=== PATIENT | male | born 1940 | race Caucasian/White ===

== ENCOUNTER 2016-06-20 06:11 | Inpatient (IN) | payer MEDICARE, OTHER, BC ==
[2016-05-25 11:51] VITALS: BMI 33.0
--- NOTE | 2016-05-25 12:24 | PAT Medication Instructions ---
Service Date May 25, 2016. Current Home Medication List Aspirin (Aspirin Chewable), 81 MG PO QAM Atorvastatin (Lipitor), 80 MG PO HS Carvedilol (Coreg Cr), 40 MG PO QAM Clopidogrel Bisulfate (Plavix), 75 MG PO DAILY Hydrochlorothiazide (Hctz), 25 MG PO QAM Isosorbide Mononitrate Ext Rel (Imdur Ext Rel), 30 MG PO QAM Oxycodone/Acetaminophen 5MG/325MG (Percocet 5MG/325MG), 1 TABLET PO Q4H PRN for Pain Tamsulosin Hcl (Flomax), 0.4 MG PO HS Valsartan (Diovan), 320 MG PO QAM Medication Instructions For Your Scheduled Surgery - Instructions to be given by prescribing physician (): Clopidogrel Bisulfate (Plavix), 75 MG PO DAILY - Hold the following medications the morning of surgery: Hydrochlorothiazide (Hctz), 25 MG PO QAM Valsartan (Diovan), 320 MG PO QAM - Take the following medications the morning of surgery with a sip of water OTHERWISE NOTHING TO EAT OR DRINK AFTER MIDNIGHT: Carvedilol (Coreg Cr), 40 MG PO QAM Aspirin (Aspirin Chewable), 81 MG PO QAM Isosorbide Mononitrate Ext Rel (Imdur Ext Rel), 30 MG PO QAM Oxycodone/Acetaminophen 5MG/325MG (Percocet 5MG/325MG), 1 TABLET PO Q4H PRN for Pain (may take if needed up to 4 hours prior to surgery) - Take the following medications as scheduled the night before surgery: Atorvastatin (Lipitor), 80 MG PO HS Tamsulosin Hcl (Flomax), 0.4 MG PO HS Oxycodone/Acetaminophen 5MG/325MG (Percocet 5MG/325MG), 1 TABLET PO Q4H PRN for Pain If you have any questions please call us at [phone] (Eli Cleveland PA-C ) or [phone] or [phone]
[2016-05-25 12:47] LABS: BASO ABS # 0.07 K/uL (0-0.2); COMPLETE YES; EOS % 3.1 %; HEMATOCRIT 40.4 % (42-52); IG% 0.3 %; LYMPH % 25.6 %; LYMPH ABS # 1.82 K/uL (1.2-3.4); MEAN CELL VOLUME 79.2 fL (80-100); MEAN CORPUSCULAR HEMOGLOBIN 27.1 pg (25-34); MEAN CORPUSCULAR HGB CONC 34.2 g/dl (32-36); MEAN PLATELET VOLUME 10.3 fL (7.4-10.4); MONO % 11.3 %; NEUT % 58.7 %; PLATELET COUNT 228 K/uL (130-400); WHITE BLOOD COUNT 7.11 K/uL (4.8-10.8)
[2016-05-25 13:10] LABS: PROTHROMBIN TIME (PATIENT) 11.2 SECONDS (9.0-12.0)
[2016-05-25 13:23] LABS: BUN/CREATININE RATIO 15.9 (10-20); CALCIUM 8.8 mg/dl (8.5-10.1); CREATININE 1.2 mg/dl (0.60-1.40); POTASSIUM 3.4 mmol/L (3.5-5.1)
[2016-05-25 13:58] LABS: URINE APPEARANCE CLOUDY (CLEAR); URINE BILIRUBIN NEG (NEG); URINE COLOR YELLOW; URINE EPITHELIAL CELL AUTO >30 /lpf (0-5); URINE NITRITE POS (NEG); URINE PH 6.5 (4.5-7.5); URINE SPECIFIC GRAVITY 1.015 (1.000-1.030); UROBILINOGEN NEG (NEG)
[2016-05-25 14:01] LABS: MANUAL MICROSCOPIC REQUIRED? NO; REVIEW REQ? NO
--- NOTE | 2016-06-18 08:54 | HISTORY & PHYSICAL EXAMINATION ---
DATE OF ADMISSION: 06/20/2016 CHIEF COMPLAINT: Right hip pain. HISTORY OF PRESENT ILLNESS: This 76-year-old white male presented to the office with complaints of right hip pain that has been ongoing for almost 2 years. Pain has become worse with time. He now has a constant pain that is worse with motion. He is having difficulty with ambulation and activities of daily living. No specific trauma. 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 He notes night pain. No numbness or tingling. He has tried oral anti-inflammatories ,as well as cortisone injections without lasting relief. He does have an antalgic gait. Pain is anterior. He elects to proceed with right total hip arthroplasty in hopes of alleviating his pain. PAST MEDICAL HISTORY: Significant for hypertension, BPH, osteoarthritis, heart disease, gout, prostatitis, and obesity. SURGICAL HISTORY: Cardiac catheterization in 2008 and 2015, colonoscopy, knee arthroscopy. FAMILY HISTORY: Significant for heart disease and sudden cardiac in multiple siblings and his father. ALLERGIES: NKDA. CURRENT MEDICATIONS: Percocet 5/325 mg p.r.n., Coreg 40 mg p.o. daily, clopidogrel 75 mg p.o. daily, HCTZ 25 mg p.o. daily, isosorbide mononitrate 30 mg p.o. daily, pantoprazole 40 mg p.o. daily, tamsulosin 0.4 mg p.o. daily, valsartan 320 mg p.o. daily. SOCIAL HISTORY: No tobacco use, no ETOH use. Retired. Single. REVIEW OF SYSTEMS: Significant for above stated conditions, otherwise unremarkable. PHYSICAL EXAMINATION: GENERAL: Well-developed, well-nourished elderly white male in no acute distress. Sitting on a bed. Alert and oriented. SKIN: Warm and dry with good turgor. No rashes or lesions. No ecchymosis or erythema. HEENT: Normocephalic, atraumatic. Left facial droop present. EYES: PERRLA. EOMI. EARS: TMs intact bilaterally with good light reflexes. No erythema or bulging. Nares patent bilaterally without turbinate enlargement. Oropharynx without erythema or exudate. No lesions noted. Uvula midline. Oral mucosa moist. HEART: RRR. No MGR. LUNGS: Clear to auscultation bilaterally. No crackles, rhonchi or wheezing. Good air movement. ABDOMEN: Bowel sounds present x4, soft, nontender. No organomegaly. No masses. MUSCULOSKELETAL: Right hip has no obvious asymmetry or deformity. He has an external rotation contracture. He also appears to have a flexion contracture. Flexion to around 90 degrees. He lacks extension even to neutral. No internal rotation. External rotation of around 25 degrees before onset of pain. There is discomfort with palpation over the anterior flexion crease. Ambulatory with an antalgic gait. Strength is 5/5 with fair quad tone. Intact motor function to the knee and ankle. NEUROLOGIC: Gross sensation is intact across both lower extremities by soft touch. Cranial nerves II-XII are intact. Left facial droop is noted. Decreased sensation over the left side of the face. DATA: Radiographic images previously obtained show severe end-stage DJD of the right hip. He is bone on bone. There is osteophyte formation, as well as subchondral sclerosis. IMPRESSION: Right hip end-stage degenerative joint disease. PLAN: Informed written consent was obtained to proceed with right total hip arthroplasty. Postoperative prescriptions for Percocet and Coumadin will be provided at discharge from the hospital. He has already seen his PCP and has been cleared for surgery in that regard. Cardiology has also evaluated him and he did have a new stress echo. He has been cleared from their perspective as well.
[2016-06-20] VITALS (9 sets, daily range): BP systolic 97–147; BP diastolic 58–80; PULSE 55–75; TEMP 36.3–36.8; O2SAT 93–98; Ht 177.8 cm; Wt 104.0 kg
[~2016-06-20] VITALS: Ht 177.8 cm; Wt 104.0 kg
[~2016-06-20 06:11] MED LIST: ASPCH81X PO; ATOR-26 PO; CEFAZOLIN 2000 MG/60 ML D5W 60 ML IV SCH; CLOP1TAB5 PO; CRGSR/40 PO; HYDR25TA4 PO; ISOS30TA3 PO; LACTATED RINGER'S 1000ML 1,000 ML IV SCH; LACTATED RINGER'S 1000ML 500 ML IV ONE; OXYC-57 PO; POTA10CA28 PO; ROPIVACAINE 5MG/ML 30 ML 150 MG, BUPIVACAINE/EPINEPHR 0.5% MPF 30 ML, DEXAMETHASONE INJ... INFIL SCH; TAMS0.4C38 PO; TRANEXAMIC ACID INJ 1,000 MG in SODIUM CHLORIDE 0.9% 100ML 100 ML TOP SCH; VALS320T PO
--- NOTE | 2016-06-20 06:25 | History & Physical Bridge Note ---
H&P Re-Evaluation Bridge Note: I have examined the patient, reviewed the History & Physical and in the interval since the performance of the History & Physical I have noted the following changes of clinical significance: No changes noted
[2016-06-20] MEDS ORDERED: BUPIVACAINE 0.5 % 5 MG/1 ML PF 10ML VIAL ONE (06:31)
[2016-06-20] MEDS ORDERED: ORTHO JOINT ANESTHETIC ONE (06:51)
[2016-06-20] MEDS ORDERED: FENTANYL CITRATE INJ 50 MCG/1 ML 2 ML VIAL ONE (07:26)
[2016-06-20] MEDS ORDERED: PROPOFOL IV EMULSION 10 MG/ML 20 ML VIAL IV ONE ×2 (07:26→09:53)
[2016-06-20] MEDS ORDERED: MIDAZOLAM HCL 1 MG/ML 2ML VIAL ONE (07:26)
[2016-06-20] MEDS ORDERED: PHENYLEPHRINE 100MCG/ML 5ML SYR IV PRN (08:15)
[2016-06-20] MEDS ORDERED: ONDANSETRON INJ 2 MG/ML 2 ML VIAL IV PRN ×2 (08:15→10:45)
[2016-06-20] MEDS ORDERED: EpHEDrine SULFATE INJ 50 MG/ML AMP IV PRN (08:15)
[2016-06-20] MEDS ORDERED: ATROPINE SULFATE 0.1 MG/ML 5ML SYR IV PRN (08:15)
[2016-06-20] MEDS ORDERED: VASOPRESSIN 20 UNIT/ML VIAL ONE (09:52)
[2016-06-20] MEDS ORDERED: EpHEDrine SULFATE 50MG/5ML SYR ONE (09:52)
[2016-06-20] MEDS ORDERED: PHENYLEPHRINE HCL INJ 10 MG/ML VIAL ONE (09:52)
[2016-06-20] MEDS ORDERED: LIDOCAINE HCL 2% 2 ML VIAL (20MG/ML) ONE (09:53)
[2016-06-20] MEDS ORDERED: ROCURONIUM BROMIDE 10 MG/ML 5 ML VIAL ONE (09:53)
[2016-06-20] MEDS ORDERED: POVIDONE-IODINE OP SOLN 30 ML BTL TOP ONE (10:15)
[2016-06-20] MEDS ORDERED: HYDROmorphone INJ 2 MG/ML SYR/VIAL ONE (10:25)
--- NOTE | 2016-06-20 10:31 | [facility] Post Operative Brief Note ---
Immediate Operative Summary Operative Date Jun 20, 2016. Pre-Operative Diagnosis Right Hip End Stage Degenerative Joint Disease Post-Operative Diagnosis Right Hip End Stage Degenerative Joint Disease Procedure(s) Performed Right Total Hip Arthroplasty--Uncemented Surgeon Dr. Kraft Safety Associate Surgeon(s) Dr. Saleem/MICHEAL Askew Estimated Blood Loss 200cc Findings severe djd Fluids (cc crystalloids) 2000cc Specimens A. Right Femoral Head Drains none Anesthesia GET Complication(s) None Disposition Recovery Room / PACU
[2016-06-20] MEDS ORDERED: MAGNESIUM HYDROXIDE SUSP 30 ML UDC PO PRN (10:45)
[2016-06-20] MEDS ORDERED: ALUMINUM/MAGNESIUM/SIMETH (MAALOX MAX) 30 ML UDC PO PRN (10:45)
[2016-06-20] MEDS ORDERED: TAMSULOSIN HCL 0.4 MG CAP PO PRN (10:45)
[2016-06-20] MEDS ORDERED: NO NSAIDS SCH (10:45)
[2016-06-20] MEDS ORDERED: BISACODYL 10 MG SUPP PR PRN (10:45)
[2016-06-20] MEDS ORDERED: MoRPHine SULFATE 2 MG/ML CARP IV PRN (10:45)
[2016-06-20] MEDS ORDERED: METOCLOPRAMIDE HCL INJ 5 MG/ML 2 ML VIAL IV PRN (10:45)
[2016-06-20] MEDS ORDERED: OXYCODONE HCL IR 5 MG TAB (IMMEDIATE RELEASE) PO PRN (10:45)
[2016-06-20] MEDS ORDERED: DiphenhydrAMINE HCL 50 MG/ML VIAL IV PRN (10:45)
--- NOTE | 2016-06-20 11:02 | [facility] Post Operative Brief Note ---
Immediate Operative Summary Operative Date Jun 20, 2016. Pre-Operative Diagnosis Right Hip End Stage Degenerative Joint Disease Post-Operative Diagnosis Right Hip End Stage Degenerative Joint Disease Procedure(s) Performed Right Total Hip Arthroplasty--Uncemented Surgeon Dr. Kraft Plow And Boring Machine Tender Surgeon(s) Dr. Saleem/MICHEAL Askew Estimated Blood Loss 200cc Findings Severe DJD of Rt hip Fluids (cc crystalloids) 2000cc Specimens A. Right Femoral Head Complication(s) None Disposition Recovery Room / PACU
[2016-06-20] MEDS: HYDROmorphone INJ 2 MG/ML SYR/VIAL IV PRN ×3 (11:10→11:27)
--- NOTE | 2016-06-20 11:12 | DIAGNOSTIC IMAGING REPORT ---
INTRAOPERATIVE RIGHT HIP SINGLE VIEW CLINICAL HISTORY: Right hip arthroplasty COMPARISON STUDY: 03/13/2016 FINDINGS: 6 seconds of fluoroscopic time was utilized. A single fluoroscopic spot image of the right hip is provided for interpretation. This reveals postsurgical changes of a total right hip arthroplasty. IMPRESSION: Intraoperative radiograph demonstrating a total right hip arthroplasty. Electronically signed by: Maximus Lopes M.D. 06/20/2016 11:10 AM Dictated Date/Time: 06/20/2016 11:09 AM
--- NOTE | 2016-06-20 11:28 | DIAGNOSTIC IMAGING REPORT ---
SINGLE VIEW PELVIS CLINICAL HISTORY: Postoperative examination. FINDINGS: AP portable view of the hips and lower pelvis is compared to study dated 03/13/2016. The skeletal structures are osteopenic. A bipolar right hip arthroplasty is in near-anatomic alignment. A single cortical lag screw transfixes the acetabular cup. No acute fracture is identified. Mild arthritic change is present in the left hip. There are expected postoperative changes overlying the right hip including skin clips, subcutaneous gas, and soft tissues swelling. IMPRESSION: Expected postoperative findings status post right hip arthroplasty. No acute fracture is seen. Electronically signed by: Glne Silva M.D. 06/20/2016 11:26 AM Dictated Date/Time: 06/20/2016 11:24 AM
--- NOTE | 2016-06-20 11:38 | OPERATIVE REPORT ---
DATE OF OPERATION: 06/20/2016 PREOPERATIVE DIAGNOSIS: Severe osteoarthritis with flexion deformity and external rotation deformity, right hip. POSTOPERATIVE DIAGNOSIS: Same. OPERATION PERFORMED: Noncemented right total hip replacement. SURGEON: Dr. Kraft. SWIMMING POOL MAINTENANCE: Dr. Galvin. SECOND SWIMMING POOL MAINTENANCE: Víctor Neville PA-C. PERIOPERATIVE SITUATION: Medically cleared male with intractable hip pain has failed conservative management, is high risk, has been gone through all this consultations and calculated his risks and wants to proceed with surgical treatment. Options were discussed in detail including all the potential complications. Please see the consent. OPERATION AND FINDINGS: OPERATION: The patient appropriately identified, site verified, consent verified, 2 grams of Ancef confirmed as being given. The right lower extremity was prepped and draped in usual routine fashion with the patient in the left lateral decubitus position. The lower extremity was prepped and draped in usual routine fashion. Posterior approach to the hip was made. Sharp dissection carried through the skin and blunt dissection down to the fascia. This was then opened. The short external rotators were identified and released. The capsule released and excised, he was very contracted. 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 The hip was then dislocated, the femoral neck resected. The acetabular exposure was then noted. There was a labral tear anteriorly that was stuck in the joint. This was all debrided. Serial reaming then carried up to a 58 and 58 cup impacted into position and then secured with an additional 6.5 x 25 screw with excellent purchase. Trial liner was then seated. Osteophytes about the inferior acetabulum were then excised. The femur was then delivered into the wound. Appropriate retraction placed with care taken to protect the sciatic nerve, box spring maker placed, canal finder placed, lateralizing rasp placed and serial broaching up to a 4 and a size 4 was placed. Reductions were then carried out and the high offset offered the best stability without increasing leg lengths. The trials were then removed. The wound irrigated copiously. The hole eliminator seated, permanent liner seated, permanent 4 high offset femur stem seated, it was seated at the exact position as before, so the 36 x 8.5 head was placed and the hip reduced. It was stable with the exception of flexion beyond 90 degrees and internal rotation beyond 30 degrees. At this point in time, the leg lengths were equal and was accepted. Wound was irrigated one final time with Betadine and then once this was done, Pulsavac and #2 Vicryl used to repair the piriformis as well as the IT band and the gluteus sera fascia. The wound was then irrigated one final time and then injected with the Orthomix. The wound was then closed with 2-0 Vicryl and stainless steel clips. Appropriate soft tissue dressing applied. While the patient was having his dressings removed someone stated the felt a click. We placed him supine. It appeared his hips were located; however, we just brought him forward just to verify that it was and everything was fine. Estimated blood loss 200 mL. Crystalloid 2000 mL. SUMMARY OF IMPLANTS: Size 58 acetabular shell sector cup with Gription, cancellous screw 6.5 x 25, acetabular liner 58 neutral x36, 4 high offset femur and 36 x 8.5 head. DVT prophylaxis at this point in time will be with Persantine b.i.d. and aspirin due to his heart disease. 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 I attest to the content of the Intraoperative Record and any orders documented therein. Any exceptio ns are noted below.
[2016-06-20] MEDS ORDERED: MoRPHine SULFATE 4 MG/ML 1 ML CARP\\VIAL IV PRN (12:15)
--- NOTE | 2016-06-20 12:34 | Anesthesiology Progress Note ---
Anesthesia Post Op Note Date & Time Jun 20, 2016 at 12:33 Vital Signs Pain Intensity: 3 Vital Signs Past 12 Hours Date Time Temp Pulse Resp B/P Pulse Ox O2 Delivery O2 Flow Rate FiO2 06/20/16 12:28 55 16 97 Nasal Cannula 5.0 06/20/16 12:00 62 13 93/61 94 Nasal Cannula 2 06/20/16 11:50 58 12 87/51 95 Nasal Cannula 2 06/20/16 11:40 36.4 70 18 93/57 94 Nasal Cannula 2 06/20/16 11:30 58 12 95/63 96 Nasal Cannula 2 06/20/16 11:20 60 12 102/60 99 Mask 10 06/20/16 11:10 67 18 114/73 100 Mask 10 06/20/16 11:01 36.2 66 18 125/71 99 Mask 10 06/20/16 06:55 36.4 75 20 116/65 93 Room Air Notes Mental Status: alert / awake / arousable, participated in evaluation Pt Amnestic to Procedure: Yes Nausea / Vomiting: adequately controlled Pain: adequately controlled Airway Patency, RR, SpO2: stable & adequate BP & HR: stable & adequate Hydration State: stable & adequate Anesthetic Complications: no major complications apparent
--- NOTE | 2016-06-20 14:15 | PROGRESS NOTE ---
DATE: 06/20/2016 Postop check. At this point in time, he is doing well. Denies chest pain, shortness of breath, fever or chills. Vital signs are stable. He is afebrile. Neurovascular check femoral sciatic nerve is good. Postop x-rays look excellent. ASSESSMENT: Doing well. Continue care pathway. DVT prophylaxis will be slightly different from protocol and then based on his chronic knee for platelet inhibition secondary to heart disease. Will place him on aspirin and Persantine.
[2016-06-20] MEDS: D5W AND 1/2NSS + 20MEQ KCL 1,000 ML IV SCH ×2 (14:41→23:52)
[2016-06-20] MEDS: FERROUS GLUCONATE 324 MG TAB PO SCH ×2 (14:41→17:45)
[2016-06-20] MEDS: ACETAMINOPHEN IV 1,000 MG in EMPTY BAG 0 ML IV SCH ×2 (14:42→21:52)
--- NOTE | 2016-06-20 15:46 | Medical Consult ---
Consultation Date of Consultation: Jun 20, 2016. Attending Physician: Param Kraft M.D. Reason for Consultation: Postoperative medical management History of Present Illness The patient is a 76-year-old male who underwent right total hip arthroplasty by Dr. Kraft earlier in the day. He is seen postoperatively and has no complaints. He is awake, alert and oriented 3, sitting upright in bed, has eaten part of his lunch, and is in no acute distress. Social History Smoking Status: Never Smoker Smokeless Tobacco Use: No Alcohol Use: none Drug Use: none Occupation Status: retired Allergies Coded Allergies: Amlodipine (Unverified Adverse Reaction, Unknown, fatigue per cardio note , 06/20/16) Naproxen (Unverified Adverse Reaction, Unknown, fatigue per cardio note , 06/20/16) Current Inpatient Medications Current Inpatient Medications Medications (Trade) Dose Ordered Sig/Janki Route Start Time Stop Time Status Last Admin Dose Admin Lactated Ringer's 1,000 ml @ 60 mls/hr [id number] IV 06/20/16 06:00 06/20/16 22:39 06/20/16 06:44 60 MLS/HR Cefazolin Sodium 60 ml @ 100 mls/hr PREOP IV 06/20/16 06:00 06/20/16 18:00 06/20/16 08:56 100 MLS/HR Tranexamic Acid 1000 mg/Sodium Chloride 110 ml @ 0 mls/hr TODAY@0600 TOP 06/20/16 06:00 06/20/16 23:59 06/20/16 08:46 1 MLS/HR Ropivacaine 150 mg/Bupivacaine HCl/Epinephrine Bitart 30 ml/ Dexamethasone Sodium Phosphate 4 mg/Ketamine HCl 10 mg/Clonidine 100 mcg/Sodium Chloride 30 ml/ Empty Bag 92.2 ml @ 0 mls/hr PREOP INFIL 06/20/16 06:00 06/20/16 16:00 06/20/16 10:02 92.2 MLS/HR Potassium Chloride/Dextrose/ Sod Cl (D5W And 1/2nss + 20meq KCl) 1,000 ml @ 100 mls/hr Q10H IV 06/20/16 14:00 06/21/16 10:36 06/20/16 14:41 100 MLS/HR Miscellaneous Medication (No Nsaids) 1 ea UD N/A 06/20/16 10:45 07/20/16 10:44 Oxycodone HCl (Roxicodone Immediate Rel Tab) 1 TABLET FOR PAIN RATING... Q4H PRN PO 06/20/16 10:45 07/04/16 10:44 Morphine Sulfate 2 mg 2 mg Q2HWA PRN IV 06/20/16 10:45 07/04/16 10:44 Acetaminophen/ Empty Bag (Ofirmev Iv/ Empty Iv Bag 100ml) 100 ml @ 400 mls/hr Q8H IV 06/20/16 14:00 06/21/16 06:14 06/20/16 14:42 400 MLS/HR Magnesium Hydroxide (Milk Of Magnesia Susp) 30 ml Q6H PRN PO 06/20/16 10:45 07/20/16 10:44 Bisacodyl (Dulcolax Supp) 10 mg DAILY PRN MT 06/20/16 10:45 07/20/16 10:44 Senna (Senokot Tab) 17.2 mg HS PO 06/20/16 21:00 07/20/16 20:59 Docusate Sodium (coLACE CAP) 100 mg BID PO 06/20/16 21:00 07/20/16 20:59 Diphenhydramine HCl (Benadryl Inj) 25 mg Q8H PRN IV 06/20/16 10:45 07/20/16 10:44 Al Hydrox/Mg Hydrox/Simethicone (Maalox Max Susp) 15 ml Q4H PRN PO 06/20/16 10:45 07/20/16 10:44 Multivitamins (Multivitamin Tab) 1 tab QAM PO 06/21/16 09:00 07/21/16 08:59 Ondansetron HCl (Zofran Inj) 4 mg Q6H PRN IV 06/20/16 10:45 07/20/16 10:44 Metoclopramide HCl (Reglan Inj) 10 mg Q6H PRN IV 06/20/16 10:45 07/20/16 10:44 Ferrous Gluconate (Ferrous Gluconate Tab) 324 mg TIDM PO 06/20/16 12:30 07/20/16 12:29 06/20/16 14:41 324 MG Pantoprazole Sodium (Protonix Tab) 40 mg QAM PO 06/21/16 09:00 07/21/16 08:59 Aspirin (Ecotrin Tab) 325 mg HS PO 06/20/16 21:00 07/20/16 20:59 Tamsulosin HCl 0.4 mg 0.4 mg QAM PRN PO 06/20/16 10:45 07/20/16 10:44 Cefazolin Sodium 2000 mg/Dextrose 60 ml @ 100 mls/hr Q8H IV 06/20/16 18:00 06/21/16 02:35 Dexamethasone Sodium Phosphate/ Syringe (Decadron Inj/ Syringe) 2.5 ml @ 1 mls/min TODAY@0730 IV 06/21/16 07:30 06/21/16 07:33 Atorvastatin Calcium (Lipitor Tab) 80 mg HS PO 06/20/16 21:00 07/20/16 20:59 Clopidogrel Bisulfate (plAVix TAB) 75 mg DAILY PO 06/21/16 09:00 07/21/16 08:59 Hydrochlorothiazide (Hydrochlorothiazide Tab) 25 mg QAM PO 06/21/16 09:00 07/21/16 08:59 Isosorbide Mononitrate (Imdur Ext Rel Tab) 30 mg QAM PO 06/21/16 09:00 07/21/16 08:59 Potassium Chloride (Klor-Con M10) 10 meq DAILY PO 06/21/16 09:00 07/21/16 08:59 Tamsulosin HCl (Flomax Cap) 0.4 mg HS PO 06/20/16 21:00 07/20/16 20:59 Valsartan (Diovan Tab) 320 mg QAM PO 06/21/16 09:00 07/21/16 08:59 Carvedilol (Coreg Cr) 40 mg QAM PO 06/21/16 09:00 07/21/16 08:59 Indomethacin (Indocin Cap) 50 mg TODAY@1745 PO 06/20/16 17:45 06/20/16 17:46 Morphine Sulfate (MoRPHine SULFATE INJ) 4 mg Q2HWA PRN IV 06/20/16 12:15 07/04/16 12:14 Review of Systems The patient denies chest pain, palpitations, shortness of breath, cough, lower extremity swelling, vision change, hearing change, sore throat, fevers, chills, sweats, weight change, fatigue, nausea, vomiting, abdominal pain, pelvic pain, blood in urine or stool, dysuria, urinary frequency or urgency, lightheadedness , dizziness, headache, memory loss, rash, abnormal bruising or bleeding, imbalance, night sweats, or allergy symptoms. The review of systems is otherwise negative other than for that already noted above, and at least 10 systems have been reviewed. Physical Exam Date Time Temp Pulse Resp B/P Pulse Ox O2 Delivery O2 Flow Rate FiO2 06/20/16 15:17 36.4 62 16 122/72 97 Nasal Cannula 3.0 06/20/16 14:12 67 16 116/68 98 Nasal Cannula 3.0 06/20/16 13:45 58 16 97/58 97 Nasal Cannula 3.0 06/20/16 13:00 56 12 107/61 97 Nasal Cannula 3 06/20/16 12:45 53 14 102/62 98 Nasal Cannula 3 06/20/16 12:30 60 12 95/63 99 Nasal Cannula 4 06/20/16 12:28 55 16 97 Nasal Cannula 5.0 06/20/16 12:20 62 23 101/62 99 Nasal Cannula 4 06/20/16 12:10 63 22 103/55 97 Nasal Cannula 4 06/20/16 12:00 62 13 93/61 94 Nasal Cannula 2 06/20/16 11:50 58 12 87/51 95 Nasal Cannula 2 06/20/16 11:40 36.4 70 18 93/57 94 Nasal Cannula 2 06/20/16 11:30 58 12 95/63 96 Nasal Cannula 2 06/20/16 11:20 60 12 102/60 99 Mask 10 06/20/16 11:10 67 18 114/73 100 Mask 10 06/20/16 11:01 36.2 66 18 125/71 99 Mask 10 06/20/16 06:55 36.4 75 20 116/65 93 Room Air The patient is awake, well-developed and adequately nourished, alert and oriented 3, normocephalic and atraumatic, lying in bed and in no acute distress. HEENT--PERRL, EOMI, mucous membranes moist, and oropharynx normal. Neck--supple, no JVD or bruits, thyroid normal, trachea midline, no adenopathy. Heart--normal S1 and S2, no extra beats, no murmurs, rubs or gallops. Lungs--clear bilaterally with good air movement, no respiratory distress, no accessory muscle use. Abdomen--normal bowel sounds and soft, nontender and nondistended, no hernias or masses, no organomegaly. Extremities--no cyanosis, clubbing or edema. There are good distal pulses b/l. Dermatologic--normal skin turgor, normal color, warm and dry, no abnormal lymph nodes, no rash. Neurologic--cranial nerves II through XII grossly intact. Psychiatric--normal affect. Assessment & Plan Status post right total hip arthroplasty, is medically stable. CAD/hypertension--no complaints of chest pain or shortness of breath. Continue carvedilol CR 40 mg by mouth every morning, aspirin and Persantine per primary service. Orders, HCTZ 25 mg by mouth every morning, Imdur extended release 30 mg by mouth every morning, potassium chloride extended release 10 mEq by mouth every morning, and valsartan 320 mg by mouth every morning,all with hold parameters. Would hold Plavix if he is going to be on aspirin and Persantine. BPH--continue tamsulosin 0.4 mg by mouth at bedtime. Hypercholesterolemia--continue atorvastatin 80 mg by mouth at bedtime.
[2016-06-20] MEDS ORDERED: INDOMETHACIN 25 MG CAP PO SCH (17:45)
[2016-06-20] MEDS: CEFAZOLIN IV 2,000 MG in DEXTROSE 5% 50ML 50 ML IV SCH (17:47)
[2016-06-20] MEDS ORDERED: ATORVASTATIN 40 MG TAB PO SCH (21:00)
[2016-06-20] MEDS ORDERED: ASPIRIN 325 MG ECTAB PO SCH (21:00)
[2016-06-20] MEDS ORDERED: TAMSULOSIN HCL 0.4 MG CAP PO SCH (21:00)
[2016-06-20] MEDS ORDERED: SENNA 8.6 MG TAB PO SCH (21:00)
[2016-06-20] MEDS: DOCUSATE SODIUM 100 MG CAP PO SCH (21:37)
[2016-06-21] MEDS: CEFAZOLIN IV 2,000 MG in DEXTROSE 5% 50ML 50 ML IV SCH (01:42)
[2016-06-21 03:51] VITALS: BP 152/78; PULSE 70; TEMP 36.3; O2SAT 93
[2016-06-21] MEDS ORDERED: COUGH DROP (SUGAR FREE) LOZ 24 LOZ/1 BOX ONE (05:38)
[2016-06-21] MEDS: ACETAMINOPHEN IV 1,000 MG in EMPTY BAG 0 ML IV SCH (05:44)
[2016-06-21 05:46] LABS: COMPLETE YES; HEMATOCRIT 32.8 % (42-52); IG% 0.2 %; LYMPH % 7.4 %; LYMPH ABS # 0.99 K/uL (1.2-3.4); MEAN CORPUSCULAR HEMOGLOBIN 26.9 pg (25-34); MEAN CORPUSCULAR HGB CONC 33.2 g/dl (32-36); MEAN PLATELET VOLUME 10.6 fL (7.4-10.4); MONO % 7.7 %; NEUT % 84.7 %; PLATELET COUNT 184 K/uL (130-400); RED BLOOD COUNT 4.05 M/uL (4.7-6.1)
[2016-06-21 05:57] LABS: INR 1.1 (0.9-1.1); PROTHROMBIN TIME (PATIENT) 11.4 SECONDS (9.0-12.0)
[2016-06-21 06:18] LABS: BUN/CREATININE RATIO 21.7 (10-20); CALCIUM 7.7 mg/dl (8.5-10.1); CREATININE 1.1 mg/dl (0.60-1.40); POTASSIUM 3.9 mmol/L (3.5-5.1)
--- NOTE | 2016-06-21 06:41 | PROGRESS NOTE ---
DATE: 06/21/2016 HISTORY OF PRESENT ILLNESS: Postop day #1, is doing well status post right hip replacement. Neurovascular check femoral sciatic nerve is good. Labs are stable. He has no chest pain, shortness of breath, fever or chills. Plan is to restart him on his Persantine and aspirin as DVT prophylaxis. He will follow up with me in the office in 2 weeks. He can be discharged today after PT, OT.
--- NOTE | 2016-06-21 06:50 | DISCHARGE SUMMARY ---
CHIEF COMPLAINT: Right hip pain. HISTORY OF PRESENT ILLNESS: A 76-year-old male admitted for elective right total hip replacement. He is doing well. He feels confident that he can go home today. He is set up with home. PAST MEDICAL HISTORY: Remarkable for hypertension, benign prostatic hypertrophy, osteoarthritis, heart disease, gout, prostatitis and weight management. PAST SURGICAL HISTORY: Remarkable for cardiac catheterization, colonoscopy, and knee arthroscopy. FAMILY HISTORY: Remarkable for heart disease and sudden cardiac in multiple siblings and his father. ALLERGIES: Listed as none, ALTHOUGH THERE IS SENSITIVITY TO NAPROSYN. CURRENT MEDICATIONS: Include Percocet, Coreg, clopidogrel, hydrochlorothiazide, isosorbide mononitrate, pantoprazole, tamsulosin and valsartan. He will continue all of that. I would add an aspirin 325 daily. SOCIAL HISTORY: Reveals he does not smoke or drink. He is retired. REVIEW OF SYSTEMS: Noncontributory. PHYSICAL EXAMINATION: Overall, doing well and can move well, can lift his leg, has good quad control, good hamstring controlled, good foot and ankle pumps. Femoral sciatic nerve is normal. Pulses intact. ASSESSMENT AND PLAN: Doing well status post hip replacement. We will discharge today after he passes physical therapy, occupational therapy. Due to special circumstances for his heart disease, we will leave on his Persantine daily and add a full aspirin and Ecotrin 325 daily. We will discontinue any notion of using NSAIDs for heterotopic ossification due to his sensitivities.
[2016-06-21 07:16] VITALS: BP 141/78; PULSE 70; TEMP 36.4; O2SAT 94
[2016-06-21] MEDS ORDERED: DEXAMETHASONE INJ 10 MG in SYRINGE 0 ML IV SCH (07:30)
--- NOTE | 2016-06-21 08:43 | Orthopedic Progress Note ---
Orthopedic Progress Note Date of Service Jun 21, 2016. 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 Objective calves soft nontender, N/V intact, hip located, capillary refill less than 2 sec., dressing C/D/I, incision C/D/I, A&O x3, toes mobile, CMS intact Date Time Temp Pulse Resp B/P Pulse Ox O2 Delivery O2 Flow Rate FiO2 06/21/16 07:16 36.4 70 16 141/78 94 Room Air 06/21/16 03:51 36.3 70 18 152/78 93 Room Air 06/20/16 23:15 36.8 72 18 144/80 96 Room Air 06/20/16 20:08 36.6 70 16 109/72 96 Nasal Cannula 06/20/16 19:35 97 Nasal Cannula 2.0 06/20/16 16:18 36.3 65 16 147/72 97 Nasal Cannula 3.0 06/20/16 15:17 36.4 62 16 122/72 97 Nasal Cannula 3.0 06/20/16 14:12 67 16 116/68 98 Nasal Cannula 3.0 06/20/16 13:45 58 16 97/58 97 Nasal Cannula 3.0 06/20/16 13:15 Nasal Cannula 3.0 06/20/16 13:15 Nasal Cannula 3.0 06/20/16 13:00 56 12 107/61 97 Nasal Cannula 3 06/20/16 12:45 53 14 102/62 98 Nasal Cannula 3 06/20/16 12:30 60 12 95/63 99 Nasal Cannula 4 06/20/16 12:28 55 16 97 Nasal Cannula 5.0 06/20/16 12:20 62 23 101/62 99 Nasal Cannula 4 06/20/16 12:10 63 22 103/55 97 Nasal Cannula 4 06/20/16 12:00 62 13 93/61 94 Nasal Cannula 2 06/20/16 11:50 58 12 87/51 95 Nasal Cannula 2 06/20/16 11:40 36.4 70 18 93/57 94 Nasal Cannula 2 06/20/16 11:30 58 12 95/63 96 Nasal Cannula 2 06/20/16 11:20 60 12 102/60 99 Mask 10 06/20/16 11:10 67 18 114/73 100 Mask 10 06/20/16 11:01 36.2 66 18 125/71 99 Mask 10 Laboratory Results 24 Hours: Test 06/21/16 05:24 White Blood Count 13.40 K/uL Red Blood Count 4.05 M/uL Hemoglobin 10.9 g/dL Hematocrit 32.8 % Mean Corpuscular Volume 81.0 fL Mean Corpuscular Hemoglobin 26.9 pg Mean Corpuscular Hemoglobin Concent 33.2 g/dl Platelet Count 184 K/uL Mean Platelet Volume 10.6 fL Neutrophils (%) (Auto) 84.7 % Lymphocytes (%) (Auto) 7.4 % Monocytes (%) (Auto) 7.7 % Eosinophils (%) (Auto) 0.0 % Basophils (%) (Auto) 0.0 % Neutrophils # (Auto) 11.35 K/uL Lymphocytes # (Auto) 0.99 K/uL Monocytes # (Auto) 1.03 K/uL Eosinophils # (Auto) 0.00 K/uL Basophils # (Auto) 0.00 K/uL Prothromb Time International Ratio 1.1 Prothrombin Time 11.4 SECONDS Assessment & Plan Assessment: Day 1 s/p Right Total Hip Arthroplasty Plan: Aspirin, Prisantine, FARRUKH stockings and SCD's for DVT prophylaxis. Cont total hip precautions Cont PT/OT with possible discharge this evening. Cont PO pain meds PRN Ice to hip with EZ wrap Home health for 2 weeks then outpatient therapy 2-3 days per week for 4 additional weeks. F/u with Dr. Kraft in the clinic in 2 wks as prev scheduled. Discharge Planning Discharge Planning: home with home health Pain Management: Percocet DVT Prophylaxis: TEDs, SCDs, ASA, other (Prisantine) Therapy: Physical Therapy, Occupational Therapy
[2016-06-21] MEDS ORDERED: VALSARTAN 80 MG TAB PO SCH (09:00)
[2016-06-21] MEDS ORDERED: POTASSIUM CHLORIDE 10 MEQ TABCR PO SCH (09:00)
[2016-06-21] MEDS ORDERED: HYDROCHLOROTHIAZIDE 25 MG TAB PO SCH (09:00)
[2016-06-21] MEDS ORDERED: MULTIVITAMIN TAB PO SCH (09:00)
[2016-06-21] MEDS ORDERED: PANTOprazole SOD 40 MG TAB PO SCH (09:00)
[2016-06-21] MEDS ORDERED: ASPIRIN 325 MG ECTAB PO SCH (09:00)
[2016-06-21] MEDS ORDERED: CLOPIDOGREL BISULFATE 75 MG TAB PO SCH (09:00)
[2016-06-21] MEDS ORDERED: ISOSORBIDE MONONITRATE 30 MG TABCR PO SCH (09:00)
[2016-06-21] MEDS ORDERED: CARVEDILOL CR 20 MG CAPER PO SCH (09:00)
[2016-06-21] MEDS ORDERED: ASPI325T45 PO (09:26)
[2016-06-21] MEDS ORDERED: OXYC-57 PO (09:26)
[2016-06-21] MEDS: DOCUSATE SODIUM 100 MG CAP PO SCH (09:31)
[2016-06-21] MEDS: FERROUS GLUCONATE 324 MG TAB PO SCH (09:31)
--- NOTE | 2016-06-21 09:33 | Discharge Instructions ---
Discharge Instructions Admission Reason for Admission: Right Hip Degenerative Joint Disease Discharge Discharge Diagnosis / Problem: s/p left total hip arthroplasty Discharge Goals Goal(s): Decrease discomfort, Improve function, Increase independence Activity Recommendations Activity Limitations: as noted below Lifting Limitations: none Exercise/Sports Limitations: none May Resume Sexual Activity: after follow-up appointment Shower/Bathe: keep incision dry Driving or Machine Use: once cleared by Dr. Kraft's office Weightbearing Status: Left weightbearing (as tolerated) . Instructions / Follow-Up Instructions / Follow-Up New Medicine: * You will likely be taking one or more of these medicines: 1. Percocet - Take, as directed, when you need it, every four to six hours to control your pain. 2. Iron Sulfate - Take three times each day for the month after surgery to help you replace the blood lost during surgery. 3. Plavix will be resumed as scheduled and you will begin taking Aspirin 325mg daily x 6 weeks after surgery- Thins your blood to lessen the chance of forming a blood clot. * The most common side effects of pain medicine and iron are nausea and constipation. If nausea or constipation is too much of a problem or if you have any questions about your new medicines or doses, call [facility] at . We will try to help you manage these issues. VERY IMPORTANT TO READ AND REVIEW" Blood Clots and Blood Thinning Medicine: * You are given Aspirin during the immediate post-operative period to lessen the risk of blood clots forming in your legs and/or lungs along with resuming your Plavix. Aspirin is to be used for six weeks after surgery. Pain: * The immediate post-operative period after hip replacement surgery is often quite painful. * You are given a prescription for pain medicine. You should take it, as directed, when you need it, especially before physical therapy and before going to bed. Pain that interferes with sleep is very common and can last several months. * You will likely need pain medicine for the first two to four weeks. It will not stop all of the pain. The pain will lessen and as you feel better, you may change to milder pain medicine such as Tylenol. * The most common side effects of pain medicine are nausea and constipation, so don't take more than you need. Physical Therapy: * Follow the "Hip Precautions Instructions." * In some cases, the social work assistant at the hospital will arrange to have a therapist come to your house for the first couple of weeks to help you learn these skills. * You need to practice on your own or with the help of a family member as needed. * When you learn these skills, most of the therapy can be done on your own. Home Exercise: * You were shown a series of exercises in the hospital. Do these exercises three to four times each day including the exercises you were shown in physical therapy. Walking: * Get up and walk several times each day. For the first four weeks, try not to stand or walk for more than one hour at a time. If you do stand or walk for more than one hour, you will not hurt anything, but your leg will likely swell. * As you feel comfortable, you may change from the walker or crutches to a cane and then to independent walking. SELF CARE INSTRUCTIONS AFTER TOTAL HIP REPLACEMENT Until the incision and soft tissues around your hip have healed, there is a possibility that the hip prosthesis could dislocate. A. Observe the following precautions to prevent dislocation: 1. Don't bend your hip greater than 90 degrees. 2. Avoid crossing your legs or ankles while standing or lying. 3. Sit with your feet placed 6 inches apart. 4. When sitting, keep your knees below your hips. Sit on a firm surface, avoid deep, soft chairs and couches. Use an elevated toilet seat in the bathroom. 5. Don't bend over at the waist. Use a long handled shoehorn and a sock aid to help you put on your shoes and socks. A quality control lab tech can help you pickle maker objects that are too high or too low to reach. 6. Keep car riding to a minimum for at least one month after surgery. B. Your balance may be shaky for a while. Use crutches or a walker until directed by your doctor. C. Use hand rails when walking on stairs. D. Wear low heeled shoes with non-slip soles. E. Be sure that your floors are free of things that could trip you - throw rugs , electrical cords, small objects. Avoid wet and waxed floors, especially with crutches and canes. F. Try to walk several times a day with rest periods between. G. Continue with all the exercises taught to you in the hospital. Again, make walking a part of your daily routine. VERY IMPORTANT TO READ AND REVIEW B. There are a few signs you need to watch for after you are home. If you notice any of the followin. Increased severe hip pain. Some pain is expected especially when you exercise. 2. Increased swelling in your leg or knee; pain or swelling of the calf muscle in either lower leg. 3. Any fluid drainage from the incision. 4. Shortness of breath or chest pain. TEDs/Elastic Stockings: * The white elastic stockings help limit swelling and prevent blood clots from forming in your legs. The more you wear them, the more they work. * Wear them for six weeks. Prevention of Infection: * Take antibiotics one hour before any dental cleaning, dental work, urological procedure, gastrointestinal procedure or any invasive surgery in order to prevent your new joint from getting infected. * You may get the antibiotics from the doctor performing the procedure or we will call in a prescription to the pharmacy of your choice. Call the office for a prescription at least 2 days prior to your appointment. Things to Watch For: * Drainage from the incision site that occurs more than one week after your surgery. * Severely increased leg pain or swelling. * Increased redness at the incision site. * Fever above 101 degrees Fahrenheit. * Unusual chest pain or shortness of breath. * Unusual pain or burning with urination. FOLLOW UP IN 2 WEEKS AT [facility] FOR STAPLE REMOVAL AND POST OPERATIVE CHECK. IF UNAWARE OF APPOINTMENT DATE/TIME PLEASE CALL OUR OFFICE AT [phone] Current Hospital Diet Patient's current hospital diet: Regular Diet Discharge Diet Recommended Diet: Regular Diet Procedures Procedures Performed: Right Total Hip Arthroplasty--Uncemented Pending Studies Studies pending at discharge: no Medical Emergencies . Who to Call and When: Medical Emergencies: If at any time you feel your situation is an emergency, please call 911 immediately. . Non-Emergent Contact Non-Emergency issues call your: Primary Care Provider . "Provider Documentation" section prepared by Michi Richards. VTE Core Measure Inpt VTE Proph given/why not?: Nini Michaud PA Drug Monitoring Program Search Results: no issues identified
[2016-06-21 09:50] VITALS: BP 141/78; PULSE 70; TEMP 36.4; O2SAT 94
[2016-06-21] MEDS: D5W AND 1/2NSS + 20MEQ KCL 1,000 ML IV SCH (10:00)
--- NOTE | 2016-06-21 10:59 | Anesthesiology Progress Note ---
Anesthesia Post Op Note Date & Time Jun 21, 2016 at 10:59 Vital Signs Vital Signs Past 12 Hours Date Time Temp Pulse Resp B/P Pulse Ox O2 Delivery O2 Flow Rate FiO2 06/21/16 09:50 36.4 70 16 94 Room Air Nasal Cannula 06/21/16 08:00 Room Air 06/21/16 07:16 36.4 70 16 141/78 94 Room Air 06/21/16 03:51 36.3 70 18 152/78 93 Room Air 06/20/16 23:15 36.8 72 18 144/80 96 Room Air Notes Mental Status: alert / awake / arousable, participated in evaluation Pt Amnestic to Procedure: Yes Nausea / Vomiting: adequately controlled Pain: adequately controlled Airway Patency, RR, SpO2: stable & adequate BP & HR: stable & adequate Hydration State: stable & adequate Anesthetic Complications: no major complications apparent
--- NOTE | 2016-06-21 11:47 | Progress Note ---
Subjective Date of Service: Jun 21, 2016. (Patrizia Olson PA-C) Subjective Pt evaluation today including: conversation w/ patient, physical exam, chart review, lab review, review of studies, review of inpatient medication list Patient seen and evaluated. Sitting in bedside chair eating breakfast. States pain is manageable with current regimen. Plan for discharge after PT evaluation. Verbalizes no further complaints. (Patrizia Olson PA-C) Review of Systems Constitutional: No chills, No fever Respiratory: No cough, No shortness of breath Cardiac: No chest pain Abdomen: No nausea, No pain, No vomiting Musculoskeletal: + joint pain (surgical site R hip) Male : No dysuria Skin: No rash (Patrizia Olson PA-C) Medications Current Inpatient Medications Medications (Trade) Dose Ordered Sig/Janki Route Start Time Stop Time Status Last Admin Dose Admin Miscellaneous Medication (No Nsaids) 1 ea UD N/A 06/20/16 10:45 07/20/16 10:44 Oxycodone HCl (Roxicodone Immediate Rel Tab) 1 TABLET FOR PAIN RATING... Q4H PRN PO 06/20/16 10:45 07/04/16 10:44 Morphine Sulfate (MoRPHine SULFATE INJ) 2 mg Q2HWA PRN IV 06/20/16 10:45 07/04/16 10:44 Magnesium Hydroxide (Milk Of Magnesia Susp) 30 ml Q6H PRN PO 06/20/16 10:45 07/20/16 10:44 Bisacodyl (Dulcolax Supp) 10 mg DAILY PRN MO 06/20/16 10:45 07/20/16 10:44 Senna (Senokot Tab) 17.2 mg HS PO 06/20/16 21:00 07/20/16 20:59 06/20/16 21:38 17.2 MG Docusate Sodium (coLACE CAP) 100 mg BID PO 06/20/16 21:00 07/20/16 20:59 06/21/16 09:31 100 MG Diphenhydramine HCl (Benadryl Inj) 25 mg Q8H PRN IV 06/20/16 10:45 07/20/16 10:44 Al Hydrox/Mg Hydrox/Simethicone (Maalox Max Susp) 15 ml Q4H PRN PO 06/20/16 10:45 07/20/16 10:44 Multivitamins (Multivitamin Tab) 1 tab QAM PO 06/21/16 09:00 07/21/16 08:59 06/21/16 09:31 1 TAB Ondansetron HCl (Zofran Inj) 4 mg Q6H PRN IV 06/20/16 10:45 07/20/16 10:44 Metoclopramide HCl (Reglan Inj) 10 mg Q6H PRN IV 06/20/16 10:45 07/20/16 10:44 Ferrous Gluconate (Ferrous Gluconate Tab) 324 mg TIDM PO 06/20/16 12:30 07/20/16 12:29 06/21/16 09:31 324 MG Pantoprazole Sodium (Protonix Tab) 40 mg QAM PO 06/21/16 09:00 07/21/16 08:59 06/21/16 09:31 40 MG Aspirin (Ecotrin Tab) 325 mg HS PO 06/20/16 21:00 07/20/16 20:59 06/20/16 21:38 325 MG Tamsulosin HCl (Flomax Cap) 0.4 mg QAM PRN PO 06/20/16 10:45 07/20/16 10:44 Atorvastatin Calcium (Lipitor Tab) 80 mg HS PO 06/20/16 21:00 07/20/16 20:59 06/20/16 22:14 80 MG Clopidogrel Bisulfate (plAVix TAB) 75 mg DAILY PO 06/21/16 09:00 07/21/16 08:59 06/21/16 10:18 75 MG Hydrochlorothiazide (Hydrochlorothiazide Tab) 25 mg QAM PO 06/21/16 09:00 07/21/16 08:59 06/21/16 09:32 25 MG Isosorbide Mononitrate (Imdur Ext Rel Tab) 30 mg QAM PO 06/21/16 09:00 07/21/16 08:59 06/21/16 10:18 30 MG Potassium Chloride (Klor-Con M10) 10 meq DAILY PO 06/21/16 09:00 07/21/16 08:59 06/21/16 10:18 10 MEQ Tamsulosin HCl (Flomax Cap) 0.4 mg HS PO 06/20/16 21:00 07/20/16 20:59 06/20/16 22:13 0.4 MG Valsartan (Diovan Tab) 320 mg QAM PO 06/21/16 09:00 07/21/16 08:59 06/21/16 10:18 320 MG Carvedilol (Coreg Cr) 40 mg QAM PO 06/21/16 09:00 07/21/16 08:59 06/21/16 09:00 40 MG Morphine Sulfate (MoRPHine SULFATE INJ) 4 mg Q2HWA PRN IV 06/20/16 12:15 07/04/16 12:14 Aspirin (Ecotrin Tab) 325 mg QAM PO 06/21/16 09:00 07/21/16 08:59 06/21/16 09:32 325 MG (Patrizia Olson, SCARLET) Objective Vital Signs Date Time Temp Pulse Resp B/P Pulse Ox O2 Delivery O2 Flow Rate FiO2 06/21/16 09:50 36.4 70 16 94 Room Air Nasal Cannula 06/21/16 08:00 Room Air 06/21/16 07:16 36.4 70 16 141/78 94 Room Air 06/21/16 03:51 36.3 70 18 152/78 93 Room Air 06/20/16 23:15 36.8 72 18 144/80 96 Room Air 06/20/16 20:08 36.6 70 16 109/72 96 Nasal Cannula 06/20/16 19:35 97 Nasal Cannula 2.0 06/20/16 16:18 36.3 65 16 147/72 97 Nasal Cannula 3.0 06/20/16 15:17 36.4 62 16 122/72 97 Nasal Cannula 3.0 06/20/16 14:12 67 16 116/68 98 Nasal Cannula 3.0 06/20/16 13:45 58 16 97/58 97 Nasal Cannula 3.0 06/20/16 13:15 Nasal Cannula 3.0 06/20/16 13:15 Nasal Cannula 3.0 06/20/16 13:00 56 12 107/61 97 Nasal Cannula 3 06/20/16 12:45 53 14 102/62 98 Nasal Cannula 3 06/20/16 12:30 60 12 95/63 99 Nasal Cannula 4 06/20/16 12:28 55 16 97 Nasal Cannula 5.0 06/20/16 12:20 62 23 101/62 99 Nasal Cannula 4 06/20/16 12:10 63 22 103/55 97 Nasal Cannula 4 06/20/16 12:00 62 13 93/61 94 Nasal Cannula 2 06/20/16 11:50 58 12 87/51 95 Nasal Cannula 2 06/20/16 11:40 36.4 70 18 93/57 94 Nasal Cannula 2 06/20/16 11:30 58 12 95/63 96 Nasal Cannula 2 (Patrizia Olson PA-C) Physical Exam General Appearance: WD/WN, no apparent distress Eyes: sclerae normal ENT: hearing grossly normal Neck: supple, trachea midline Respiratory/Chest: lungs clear, normal breath sounds, no respiratory distress, no accessory muscle use Cardiovascular: regular rate, rhythm, no gallop, no murmur Abdomen: normal bowel sounds, non tender, soft Extremities: no pedal edema, no calf tenderness Neurologic/Psychiatric: alert, oriented x 3 Skin: normal color, warm/dry (Patrizia Olson PA-C) Laboratory Results Last 24 Hours Test 06/21/16 05:24 White Blood Count 13.40 K/uL Red Blood Count 4.05 M/uL Hemoglobin 10.9 g/dL Hematocrit 32.8 % Mean Corpuscular Volume 81.0 fL Mean Corpuscular Hemoglobin 26.9 pg Mean Corpuscular Hemoglobin Concent 33.2 g/dl Platelet Count 184 K/uL Mean Platelet Volume 10.6 fL Neutrophils (%) (Auto) 84.7 % Lymphocytes (%) (Auto) 7.4 % Monocytes (%) (Auto) 7.7 % Eosinophils (%) (Auto) 0.0 % Basophils (%) (Auto) 0.0 % Neutrophils # (Auto) 11.35 K/uL Lymphocytes # (Auto) 0.99 K/uL Monocytes # (Auto) 1.03 K/uL Eosinophils # (Auto) 0.00 K/uL Basophils # (Auto) 0.00 K/uL RDW Standard Deviation 40.6 fL RDW Coefficient of Variation 13.7 % Immature Granulocyte % (Auto) 0.2 % Immature Granulocyte # (Auto) 0.03 K/uL Prothrombin Time 11.4 SECONDS Prothromb Time International Ratio 1.1 Sodium Level 134 mmol/L Potassium Level 3.9 mmol/L Chloride Level 97 mmol/L Carbon Dioxide Level 27 mmol/L Anion Gap 10.0 mmol/L Blood Urea Nitrogen 24 mg/dl Creatinine 1.10 mg/dl Est Creatinine Clear Calc Drug Dose 71.2 ml/min Estimated GFR () 76.2 Estimated GFR (Non- 65.8 BUN/Creatinine Ratio 21.7 Random Glucose 157 mg/dl Calcium Level 7.7 mg/dl (Patrizia Olson, SHANEC) Assessment and Plan S/P R ADAM: - Per Primary team CAD/HTN/HLD: - Continue Carvedilol 40 mg daily - HCTZ 25 mg daily with potassium supp - Imdur 30 mg daily - Valsartan 320 mg daily - Atorvastatin 80 mg daily BPH: - Flomax 0.4 mg daily Disposition: - Plan for D/C home per primary - in agreement for ASA and Plavix (Patrizia Olson, SHANEC) Attending Attestation: Pt seen/examined, chart reviewed, and care plan d/w MICHEAL Olson. I agree w/ the stein components of her documentation. Pt w/o complaints today. No cp, dyspnea, sob at rest, abd pain. +flatus. Eating fine w/o nausea/emesis. Voiding fine. VSS, afebrile gen - NAD neck - no JVD heart - RRR, s1, s2, no murmur lungs - CTA b/l abd - soft, NT, ND, BS+ ext - no ankle edema A/P: 1. s/p right THR 2. BPH - cont alpha vince, voiding fine 3. CAD - no ischemic symptoms; cont asa, plavix, BB, statin 4. mild acute blood loss anemia - consider Fe supplementation for 1 month From medical standpoint is ok for discharge. Osbaldo Zaragoza MD (Osbaldo Zaragoza MD)
[2016-07-11] MEDS ORDERED: TPRSR50 PO (09:32)
[2016-07-11] MEDS ORDERED: ZTHM250 PO (09:32)
[2016-07-11] MEDS ORDERED: CLC6 PO (09:32)
== END 2016-06-21 12:30 | disposition home health service (06) | DRG 470 ==
LOC: ENRESERVTM → ENRESERVDT → C.ACU 06:11 → C.3E 06:20
PROVIDERS: ADMIT Physical Medicine & Rehabilitation Sports Medicine; ATTEND Physical Medicine & Rehabilitation Sports Medicine
PROC: 0SR90JA Replacement of Right Hip Joint with Synthetic Substitute, Uncemented, Open Approach (ICD-10-PCS; principal; 2016-06-20 08:45)
DX: M16.11 Unilateral primary osteoarthritis, right hip (principal); M24.551 Contracture, right hip; I10 Essential (primary) hypertension; I25.10 Atherosclerotic heart disease of native coronary artery without angina pectoris; E78.00 Pure hypercholesterolemia, unspecified; N40.0 Benign prostatic hyperplasia without lower urinary tract symptoms; I69.392 Facial weakness following cerebral infarction; I69.322 Dysarthria following cerebral infarction; R25.1 Tremor, unspecified; E66.9 Obesity, unspecified; Z68.33 Body mass index [BMI] 33.0-33.9, adult; Z79.02 Long term (current) use of antithrombotics/antiplatelets; Z79.82 Long term (current) use of aspirin; Z79.891 Long term (current) use of opiate analgesic; Z79.899 Other long term (current) drug therapy

== ENCOUNTER 2016-07-09 17:07 | Inpatient (IN) | payer MEDICARE, OTHER ==
[~2016-07-09] VITALS: Ht 177.8 cm; Wt 101.5 kg
[~2016-07-09 17:07] MED LIST changes: -ASPCH81X PO; +ASPI325T45 PO; -CEFAZOLIN 2000 MG/60 ML D5W 60 ML IV SCH; -LACTATED RINGER'S 1000ML 1,000 ML IV SCH; -LACTATED RINGER'S 1000ML 500 ML IV ONE; -ROPIVACAINE 5MG/ML 30 ML 150 MG, BUPIVACAINE/EPINEPHR 0.5% MPF 30 ML, DEXAMETHASONE INJ... INFIL SCH; -TRANEXAMIC ACID INJ 1,000 MG in SODIUM CHLORIDE 0.9% 100ML 100 ML TOP SCH
[2016-07-09] MEDS ORDERED: SODIUM CHLORIDE 0.9% 1000ML 1,000 ML IV STA ×2 (17:25→18:18)
--- NOTE | 2016-07-09 17:42 | DIAGNOSTIC IMAGING REPORT ---
CHEST ONE VIEW PORTABLE CLINICAL HISTORY: Altered mental status. Weakness. COMPARISON STUDY: January 09, 2016 FINDINGS: The cardiac and mediastinal contours remain stable. There is elevation right hemidiaphragm. There is no failure. There is no focal pulmonary consolidation. No pleural effusions are visualized.[ IMPRESSION: Mild elevation right hemidiaphragm. No acute findings. Electronically signed by: Maximus Lopes M.D. 07/09/2016 5:41 PM Dictated Date/Time: 07/09/2016 5:41 PM
[2016-07-09] MEDS ORDERED: OPTIRAY 320 IV PRN (17:45)
[2016-07-09 17:47] LABS: ISTAT CREATININE 1.6 mg/dl (0.6-1.3); ISTAT HEMOGLOBIN 12.6 g/dl (14.0-18.0); ISTAT IONIZED CALCIUM 1.08 mmol/l (1.12-1.32)
[2016-07-09 17:50] LABS: INR 1.1 (0.9-1.1); PROTHROMBIN TIME (PATIENT) 11.4 SECONDS (9.0-12.0)
[2016-07-09 17:51] LABS: BASO % 0.3 %; BASO ABS # 0.03 K/uL (0-0.2); COMPLETE YES; EOS % 0.4 %; HEMATOCRIT 36.6 % (42-52); IG% 0.5 %; LYMPH % 20.1 %; LYMPH ABS # 2.41 K/uL (1.2-3.4); MEAN CELL VOLUME 80.4 fL (80-100); MEAN CORPUSCULAR HGB CONC 33.6 g/dl (32-36); MEAN PLATELET VOLUME 9.9 fL (7.4-10.4); MONO % 6.6 %; NEUT % 72.1 %; PLATELET COUNT 591 K/uL (130-400); RED BLOOD COUNT 4.55 M/uL (4.7-6.1); WHITE BLOOD COUNT 11.98 K/uL (4.8-10.8)
[2016-07-09 18:02] LABS: CALCIUM 8.2 mg/dl (8.5-10.1); CREATININE 1.8 mg/dl (0.60-1.40); MAGNESIUM 2.2 mg/dl (1.8-2.4); POTASSIUM 3.3 mmol/L (3.5-5.1)
[2016-07-09 18:10] LABS: CKMB/CK RATIO 3.1 (0-3.0); PHOSPHORUS 2.7 mg/dl (2.5-4.9); THYROID STIMULATING HORMONE 2.33 uIu/ml (0.300-4.500)
[2016-07-09] MEDS ORDERED: ASPI81TA28 PO (18:32)
--- NOTE | 2016-07-09 18:32 | DIAGNOSTIC IMAGING REPORT ---
CT HEAD WITHOUT CONTRAST (CT) CLINICAL HISTORY: Change in mental status. Weakness. COMPARISON STUDY: No previous studies for comparison. TECHNIQUE: Axial CT of the brain is performed from the vertex to the skull base. IV contrast was not administered for this examination. CT DOSE: 537.48 mGy.cm FINDINGS: No intra or extra-axial mass lesions are visualized. There is no CT evidence of acute cortical infarction. There is no evidence of midline shift. There is no acute hemorrhage. No calvarial fractures are visualized. There are minor white matter hypodensities likely on a small vessel basis. There is no evidence of pathologic ventricular dilatation. There is no evidence of acute sinusitis IMPRESSION: No acute intracranial findings Electronically signed by: Maximus Lopes M.D. 07/09/2016 6:30 PM Dictated Date/Time: 07/09/2016 6:30 PM
[2016-07-09] MEDS ORDERED: HEPARIN 25000 UNIT/500 ML D5W ONE (18:39)
[2016-07-09] MEDS: HEPARIN 25,000 UNIT/500ML D5W 500 ML IV PRN (18:49)
[2016-07-09] MEDS ORDERED: SODIUM CHLORIDE 0.9% 1000ML 1,000 ML IV SCH (19:04)
[2016-07-09] MEDS ORDERED: ACETAMINOPHEN 325 MG TAB PO PRN (19:15)
[2016-07-09] MEDS ORDERED: METOPROLOL TARTRATE 1 MG/ML VIAL IV PRN (19:15)
[2016-07-09] MEDS ORDERED: ONDANSETRON INJ 2 MG/ML 2 ML VIAL IV PRN (19:15)
[2016-07-09] MEDS ORDERED: POTASSIUM CHLORIDE 10 MEQ TABCR PO STA (19:25)
--- NOTE | 2016-07-09 19:28 | EMERGENCY ROOM VISIT NOTE ---
History Report prepared by Cm: Yaima Sánchez Under the Supervision of: Dr. Woo Timmons D.O. 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 The patient was referred to the ED by his orthopedic after being reevaluated by his surgeon for hypotension. The patient's family states that the patient has recently had right hip surgery and when evaluated today his hip seemed to be healing well but 3 shweta were left in and the patient states that his hip feels okay. The patient states that along with his SOB he has also been experiencing dizziness when getting up and generalized weakness. The patient states that he has never experience symptoms similar to today. His family states the patient has also appeared more pale recently. The patient denies any cough or black or bloody stool. The patient states that he is currently taking aspirin and Plavix. He denies any history of atrial fibrillation. 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 ), No melena Note: Associated symptoms: dizziness, pale. patient denies bloody stool. Review of Systems See HPI for pertinent positives & negatives. A total of 10 systems reviewed and were otherwise negative. Past Medical & Surgical Medical Problems: (1) Acute dyspnea (2) Degenerative joint disease of right hip (3) New onset a-fib Family History No pertient family history secondary to age. Social History Smoking Status: Never Smoker Drug Use: none Occupation Status: retired Current/Historical Medications Scheduled Aspirin (Aspirin Ec), 81 MG PO DAILY Atorvastatin (Lipitor), 80 MG PO HS Carvedilol (Coreg Cr), 40 MG PO QAM Clopidogrel Bisulfate (Plavix), 75 MG PO DAILY Hydrochlorothiazide (Hctz), 25 MG PO QAM Potassium Chloride (Micro-K Ext Rel), 1 TAB PO DAILY Tamsulosin Hcl (Flomax), 0.4 MG PO HS Valsartan (Diovan), 320 MG PO QAM Scheduled PRN Oxycodone/Acetaminophen 5MG/325MG (Percocet 5MG/325MG), 1 TABLET PO Q4H PRN for Pain Allergies Coded Allergies: Amlodipine (Unverified Adverse Reaction, Unknown, fatigue per cardio note , 07/09/16) Naproxen (Unverified Adverse Reaction, Unknown, fatigue per cardio note , 07/09/16) Physical Exam Vital Signs Date Time Temp Pulse Resp B/P Pulse Ox O2 Delivery O2 Flow Rate FiO2 07/09/16 18:50 80 18 94/55 07/09/16 18:25 79 18 97/82 07/09/16 18:00 83 18 90/46 100 Nasal Cannula 2.0 07/09/16 18:00 83 07/09/16 17:50 125 23 85/42 07/09/16 17:40 Nasal Cannula 2.0 07/09/16 17:40 119 27 76/50 93 Room Air 07/09/16 17:30 134 26 74/42 93 Room Air 07/09/16 17:26 147 07/09/16 17:13 36.3 109 19 74/45 98 Room Air Physical Exam CONSTITUTIONAL/VITAL SIGNS: Reviewed / noted above. GENERAL: Non-toxic in appearance, weakness INTEGUMENTARY: Warm, dry, and pale. HEAD: Normocephalic. EYES: without scleral icterus or trauma. ENT/OROPHARYNX: clear and moist. LYMPHADENOPATHY/NECK: Is supple without lymphadenopathy or meningismus. RESPIRATORY: Lungs clear and equal. CARDIOVASCULAR: Thready pulse in radial region that is rapid and irregular. GI/ABDOMEN: Soft and nontender. No organomegaly or pulsatile mass. No rebound or guarding. Normal bowel sounds. EXTREMITIES: Warm and well perfused. BACK: No CVA tenderness. NEUROLOGICAL: Intact without focal deficits. PSYCHIATRIC: normal affect. MUSCULOSKELETAL: Normally developed with good muscle tone. Medical Decision & Procedures ER Provider Diagnostic Interpretation: X ray results and stated below per my interpretation and radiology interpretation. CHEST ONE VIEW PORTABLE CLINICAL HISTORY: Altered mental status. Weakness. COMPARISON STUDY: January 09, 2016 FINDINGS: The cardiac and mediastinal contours remain stable. There is elevation right hemidiaphragm. There is no failure. There is no focal pulmonary consolidation. No pleural effusions are visualized.[ IMPRESSION: Mild elevation right hemidiaphragm. No acute findings. Electronically signed by: Maximus Lopes M.D. 07/09/2016 5:41 PM Dictated Date/Time: 07/09/2016 5:[address] results as stated below per my review and radiologist interpretation: CT HEAD WITHOUT CONTRAST (CT) CLINICAL HISTORY: Change in mental status. Weakness. COMPARISON STUDY: No previous studies for comparison. TECHNIQUE: Axial CT of the brain is performed from the vertex to the skull base. IV contrast was not administered for this examination. CT DOSE: 537.48 mGy.cm FINDINGS: No intra or extra-axial mass lesions are visualized. There is no CT evidence of acute cortical infarction. There is no evidence of midline shift. There is no acute hemorrhage. No calvarial fractures are visualized. There are minor white matter hypodensities likely on a small vessel basis. There is no evidence of pathologic ventricular dilatation. There is no evidence of acute sinusitis IMPRESSION: No acute intracranial findings Electronically signed by: Maximus Lopes M.D. 07/09/2016 6:30 PM Dictated Date/Time: 07/09/2016 6:30 PM Laboratory Results 07/09/16 17:25 Red Blood Count 4.55, Mean Corpuscular Volume 80.4, Mean Corpuscular Hemoglobin 27.0, Mean Corpuscular Hemoglobin Concent 33.6, Mean Platelet Volume 9.9, Neutrophils (%) (Auto) 72.1, Lymphocytes (%) (Auto) 20.1, Monocytes (%) (Auto) 6.6, Eosinophils (%) (Auto) 0.4, Basophils (%) (Auto) 0.3, Neutrophils # (Auto) 8.64, Lymphocytes # (Auto) 2.41, Monocytes # (Auto) 0.79, Eosinophils # (Auto) 0.05, Basophils # (Auto) 0.03 07/09/16 17:25 Test 07/09/16 17:25 07/09/16 17:31 07/09/16 17:32 07/09/16 18:29 White Blood Count 11.98 K/uL (4.8-10.8) Red Blood Count 4.55 M/uL (4.7-6.1) Hemoglobin 12.3 g/dL (14.0-18.0) Hematocrit 36.6 % (42-52) Mean Corpuscular Volume 80.4 fL (80-100) Mean Corpuscular Hemoglobin 27.0 pg (25-34) Mean Corpuscular Hemoglobin Concent 33.6 g/dl (32-36) Platelet Count 591 K/uL (130-400) Mean Platelet Volume 9.9 fL (7.4-10.4) Neutrophils (%) (Auto) 72.1 % Lymphocytes (%) (Auto) 20.1 % Monocytes (%) (Auto) 6.6 % Eosinophils (%) (Auto) 0.4 % Basophils (%) (Auto) 0.3 % Neutrophils # (Auto) 8.64 K/uL (1.4-6.5) Lymphocytes # (Auto) 2.41 K/uL (1.2-3.4) Monocytes # (Auto) 0.79 K/uL (0.11-0.59) Eosinophils # (Auto) 0.05 K/uL (0-0.5) Basophils # (Auto) 0.03 K/uL (0-0.2) RDW Standard Deviation 40.7 fL (36.4-46.3) RDW Coefficient of Variation 13.9 % (11.5-14.5) Immature Granulocyte % (Auto) 0.5 % Immature Granulocyte # (Auto) 0.06 K/uL (0.00-0.02) Prothrombin Time 11.4 SECONDS (9.0-12.0) Prothromb Time International Ratio 1.1 (0.9-1.1) Activated Partial Thromboplast Time 25.5 SECONDS (21.0-31.0) Partial Thromboplastin Ratio 1.0 Est Creatinine Clear Calc Drug Dose 43.0 ml/min Estimated GFR () 42.0 Estimated GFR (Non- 36.3 BUN/Creatinine Ratio 19.0 (10-20) Calcium Level 8.2 mg/dl (8.5-10.1) Phosphorus Level 2.7 mg/dl (2.5-4.9) Magnesium Level 2.2 mg/dl (1.8-2.4) Total Bilirubin 0.8 mg/dl (0.2-1) Direct Bilirubin 0.3 mg/dl (0-0.2) Aspartate Amino Transf (AST/SGOT) 47 U/L (15-37) Alanine Aminotransferase (ALT/SGPT) 109 U/L (12-78) Alkaline Phosphatase 145 U/L (45-117) Total Creatine Kinase 87 U/L (39-308) Creatine Kinase MB 2.7 ng/ml (0.5-3.6) Creatine Kinase MB Ratio 3.1 (0-3.0) Troponin I 0.028 ng/ml (0-0.045) Pro-B-Type Natriuretic Peptide 1632 pg/ml (0-900) Total Protein 6.7 gm/dl (6.4-8.2) Albumin 2.8 gm/dl (3.4-5.0) Lipase 223 U/L (73-393) Thyroid Stimulating Hormone (TSH) 2.330 uIu/ml (0.300-4.500) Bedside Hemoglobin 12.6 g/dl (14.0-18.0) Bedside Hematocrit 37 % (42-52) Bedside Sodium 134 mEq/L (135-144) Bedside Potassium 3.3 mEq/L (3.3-5.0) Bedside Chloride 92 mEq/L (101-112) Bedside Total CO2 28 mEq/l (24-31) Anion Gap 17.0 mmol/L (16-25) Bedside Blood Urea Nitrogen 33 mg/dl (7-18) Bedside Creatinine 1.6 mg/dl (0.6-1.3) Bedside Glucose (other) 182 mg/dl (70-99) Bedside Ionized Calcium (Ina) 1.08 mmol/l (1.12-1.32) Bedside D-Dimer > 450 ng/mlFEU (0-450) Bedside Troponin I 0.020 ng/ml (0-0.045) Bedside Lactic Acid Venous 2.33 mmol/L (0.90-1.70) Laboratory results as stated above per my review. Medications Administered Medications (Trade) Dose Ordered Sig/Janki Route Start Time Stop Time Status Last Admin Dose Admin Sodium Chloride 1,000 ml @ 999 mls/hr Q1H1M STAT IV 07/09/16 17:25 07/09/16 18:25 DC 07/09/16 17:27 999 MLS/HR Sodium Chloride 1,000 ml @ 999 mls/hr Q1H1M STAT IV 07/09/16 18:18 07/09/16 19:18 DC 07/09/16 18:47 999 MLS/HR Heparin Sodium/ Dextrose (Heparin 25,000 Unit/500ml D5W) 500 ml @ 31 mls/hr Q16H8M PRN IV 07/09/16 18:45 08/08/16 18:44 07/09/16 18:49 31 MLS/HR ECG Indication: SOB/dyspnea Rate (beats per minute): 144 Rhythm: atrial fibrillation (with RVR) Findings: no ectopy, other (no acute injury) Change: EKG #2: Normal sinus rhythm rate of 84bpm, no acute injury, no ectopy. ED Course 1720: Previous medical records were reviewed. The patient was evaluated in room B1. A complete history and physical examination was performed. 172: Ordered Sodium Chloride 1,000 ml @ 999 mls/hr IV. 1817: Ordered Heparin Sodium/ Dextrose 1 ea N/A, Sodium Chloride 1,000 ml @ 999 mls/hr IV. 1820: I discussed the case with Dr. Samy Calvo Hospitalist. He agreed to evaluate the patient for further management and care. Medical Decision Differential includes acute coronary syndrome, myocardial infarction, CVA, TIA, anemia, infection, pneumonia, UTI, pyelonephritis, poor nutrition, dehydration, electrolyte disturbance,hypoglycemia. This is a 76-year-old male who presents to the ED with a chief complaint of shortness of breath for the past 3-4 days as well as dizziness when getting up, tiredness and generalized weakness. He was seen by the orthopedist service today as he had a right hip replacement June 20. The patient was found to be hypotensive there and sent here for evaluation. His initial vital signs reveal a blood pressure 74/45 and a heart rate of 109. When I saw him in being one, his heart rate was about 150 and showed atrial fibrillation on the EKG. The patient looks somewhat pale in nature. He otherwise appeared generally weak. Further exam findings are noted above. I-STAT laboratory studies were performed as well as a point of care troponin and d-dimer. The d-dimer was elevated. The troponin was normal. I-STAT did not show significant anemia although it did show some renal insufficiency and dehydration with elevated BUN and creatinine. This was confirmed by the formal labs. His initial EKG showed A. fib with a heart rate of 144. As the patient was hydrated with a liter of IV fluid bolus, he converted to a normal sinus rhythm. His blood pressure remained somewhat low but seems to be stable. He did feel better. His BUN is 34 and his creatinine was 1.8. BNP was elevated. TSH was normal. Patient had a CT scan of brain did not show any acute findings. A CT scan of the chest was considered although the patient's creatinine is 1.8. The decision to heparinize the patient and to admit the patient was made. I spoke with the hospitalist who will see the patient for further inpatient care. Consults Time Called: 1816 Consulting Physician: Dr. Samy Calvo Hospitalist Returned Call: 1820 I discussed the case with Dr. Mark Calvo Hospitalist. He agreed to evaluate the patient for further management and care. Impression Primary Impression: Atrial fibrillation with rapid ventricular response Additional Impressions: Hypotension Dehydration Renal insufficiency Critical Care I have personally spent 35 minutes of critical care time in the direct management of this patient. This includes bedside care, interpretation of diagnostic studies, and testing, discussion with consultants, patient, and family members, and other required patient management activities. Scribe Attestation The scribe's documentation has been prepared under my direction and personally reviewed by me in its entirety. I confirm that the note above accurately reflects all work, treatment, procedures, and medical decision making performed by me. Departure Information Dispostion Being Evaluated By Hospitalist Referrals Daniel Abad M.D. (PCP) Problem Qualifiers
[2016-07-09] MEDS ORDERED: ISOS60TA2 PO (19:49)
[2016-07-09] MEDS ORDERED: OXYCODONE HCL IR 5 MG TAB (IMMEDIATE RELEASE) PO PRN (20:00)
[2016-07-09 20:10] VITALS: BP 110/61; PULSE 70; TEMP 36.7; O2SAT 95; Ht 177.8 cm; Wt 101.5 kg
--- NOTE | 2016-07-09 20:38 | History and Physical ---
History & Physical Date & Time of Service: Jul 09, 2016 at 19:55 Chief Complaint: Low Blood Pressure- Sent By Primary Care Physician: Daniel Abad M.D. History of Present Illness Source: patient, family Patient is a 76 Yr old male with PMH of CVA, CAD, HTN, BPH, HTN, HLP, DJD who was recently discharged after undergoing an elective right hip replacement presents with history of worsening SOB, light headedness since 2 days duration. Also reports decreased oral intake since 2 weeks duration. He states he slipped and fell about 10 days ago after being discharged from previous admission but denies any head trauma, LOC at the time. Patient was refereed by his orthopedic surgeon for evaluation in ED for hypotension. Patient had right hip wound with pressure dressing and 3 shweta left and was told his wound was healing well. In ED he was found to have afib with rvr, hypotensive and was dizzy which improved with IV fluids and he converted into sinus rhythm. Currently denies any chest pain, SOB, palpitations, dizziness, blurred vision. Also denies any history of nausea, vomiting, fever, chills, abd pain, change in bowel/bladder habits. Past Medical/Surgical History Medical Problems: (1) BPH (benign prostatic hyperplasia) Status: Chronic (2) CAD (coronary artery disease) Status: Chronic (3) CVA (cerebral vascular accident) Status: Chronic (4) Degenerative joint disease of right hip Status: Chronic (5) Hyperlipidemia Status: Chronic (6) Hypertension Status: Chronic Surgical Problems: (1) History of right hip replacement Status: Chronic Family History FH: heart disease FATHER MOTHER BROTHER No pertient family history secondary to age. Social History Smoking Status: Never Smoker Alcohol Use: socially Drug Use: none Occupational Status: retired Multi-Drug Resistant Organisms History of MDRO: No Allergies Coded Allergies: Amlodipine (Unverified Adverse Reaction, Unknown, fatigue per cardio note , 07/09/16) Naproxen (Unverified Adverse Reaction, Unknown, fatigue per cardio note , 07/09/16) Home Medications Scheduled Aspirin (Aspirin Ec), 81 MG PO DAILY Atorvastatin (Lipitor), 80 MG PO HS Carvedilol (Coreg Cr), 40 MG PO QAM Clopidogrel Bisulfate (Plavix), 75 MG PO DAILY Hydrochlorothiazide (Hctz), 25 MG PO QAM Potassium Chloride (Micro-K Ext Rel), 1 TAB PO DAILY Tamsulosin Hcl (Flomax), 0.4 MG PO HS Valsartan (Diovan), 320 MG PO QAM Scheduled PRN Isosorbide Mononitrate (Imdur Ext Rel), 30 MG PO UD PRN for Chest Pain Oxycodone/Acetaminophen 5MG/325MG (Percocet 5MG/325MG), 1 TABLET PO Q4H PRN for Pain Review of Systems See HPI for pertinent positives & negatives. A total of 10 systems reviewed and were otherwise negative. Physical Exam Vital Signs Date Time Temp Pulse Resp B/P Pulse Ox O2 Delivery O2 Flow Rate FiO2 07/09/16 18:50 80 18 94/55 07/09/16 18:25 79 18 97/82 07/09/16 18:00 83 18 90/46 100 Nasal Cannula 2.0 07/09/16 18:00 83 07/09/16 17:50 125 23 85/42 07/09/16 17:40 Nasal Cannula 2.0 07/09/16 17:40 119 27 76/50 93 Room Air 07/09/16 17:30 134 26 74/42 93 Room Air 07/09/16 17:26 147 07/09/16 17:13 36.3 109 19 74/45 98 Room Air General Appearance: WD/WN, no apparent distress Head: normocephalic, atraumatic Eyes: normal inspection, PERRL, EOMI, sclerae normal, + pertinent finding ( left lower lid droop) ENT: normal ENT inspection, hearing grossly normal, pharynx normal Neck: supple, no JVD, trachea midline Respiratory/Chest: chest non-tender, lungs clear, normal breath sounds, no respiratory distress, no accessory muscle use Cardiovascular: regular rate, rhythm, no edema, no murmur, normal peripheral pulses Abdomen/GI: normal bowel sounds, non tender, soft, no organomegaly Back: normal inspection, normal range of motion Extremities/Musculoskelatal: normal inspection, no calf tenderness, no pedal edema 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, no motor/sensory deficits, alert, normal mood/affect, normal reflexes Skin: normal color, warm/dry Diagnostics Laboratory Results Results Past 24 Hours Test 07/09/16 17:25 07/09/16 17:31 07/09/16 17:32 07/09/16 18:29 Range/Units White Blood Count 11.98 4.8-10.8 K/uL Red Blood Count 4.55 4.7-6.1 M/uL Hemoglobin 12.3 14.0-18.0 g/dL Hematocrit 36.6 42-52 % Mean Corpuscular Volume 80.4 80-100 fL Mean Corpuscular Hemoglobin 27.0 25-34 pg Mean Corpuscular Hemoglobin Concent 33.6 32-36 g/dl Platelet Count 591 130-400 K/uL Mean Platelet Volume 9.9 7.4-10.4 fL Neutrophils (%) (Auto) 72.1 % Lymphocytes (%) (Auto) 20.1 % Monocytes (%) (Auto) 6.6 % Eosinophils (%) (Auto) 0.4 % Basophils (%) (Auto) 0.3 % Neutrophils # (Auto) 8.64 1.4-6.5 K/uL Lymphocytes # (Auto) 2.41 1.2-3.4 K/uL Monocytes # (Auto) 0.79 0.11-0.59 K/uL Eosinophils # (Auto) 0.05 0-0.5 K/uL Basophils # (Auto) 0.03 0-0.2 K/uL RDW Standard Deviation 40.7 36.4-46.3 fL RDW Coefficient of Variation 13.9 11.5-14.5 % Immature Granulocyte % (Auto) 0.5 % Immature Granulocyte # (Auto) 0.06 0.00-0.02 K/uL Prothrombin Time 11.4 9.0-12.0 SECONDS Prothromb Time International Ratio 1.1 0.9-1.1 Activated Partial Thromboplast Time 25.5 21.0-31.0 SECONDS Partial Thromboplastin Ratio 1.0 Sodium Level 135 136-145 mmol/L Potassium Level 3.3 3.5-5.1 mmol/L Chloride Level 98 98-107 mmol/L Carbon Dioxide Level 26 21-32 mmol/L Anion Gap 11.0 17.0 16-25 mmol/L Blood Urea Nitrogen 34 7-18 mg/dl Creatinine 1.80 0.60-1.40 mg/dl Est Creatinine Clear Calc Drug Dose 43.0 ml/min Estimated GFR () 42.0 Estimated GFR (Non- 36.3 BUN/Creatinine Ratio 19.0 10-20 Random Glucose 178 70-99 mg/dl Calcium Level 8.2 8.5-10.1 mg/dl Phosphorus Level 2.7 2.5-4.9 mg/dl Magnesium Level 2.2 1.8-2.4 mg/dl Total Bilirubin 0.8 0.2-1 mg/dl Direct Bilirubin 0.3 0-0.2 mg/dl Aspartate Amino Transf (AST/SGOT) 47 15-37 U/L Alanine Aminotransferase (ALT/SGPT) 109 12-78 U/L Alkaline Phosphatase 145 45-117 U/L Total Creatine Kinase 87 39-308 U/L Creatine Kinase MB 2.7 0.5-3.6 ng/ml Creatine Kinase MB Ratio 3.1 0-3.0 Troponin I 0.028 0-0.045 ng/ml Pro-B-Type Natriuretic Peptide 1632 0-900 pg/ml Total Protein 6.7 6.4-8.2 gm/dl Albumin 2.8 3.4-5.0 gm/dl Lipase 223 73-393 U/L Thyroid Stimulating Hormone (TSH) 2.330 0.300-4.500 uIu/ml Bedside Hemoglobin 12.6 14.0-18.0 g/dl Bedside Hematocrit 37 42-52 % Bedside Sodium 134 135-144 mEq/L Bedside Potassium 3.3 3.3-5.0 mEq/L Bedside Chloride 92 101-112 mEq/L Bedside Total CO2 28 24-31 mEq/l Bedside Blood Urea Nitrogen 33 7-18 mg/dl Bedside Creatinine 1.6 0.6-1.3 mg/dl Bedside Glucose (other) 182 70-99 mg/dl Bedside Ionized Calcium (Ina) 1.08 1.12-1.32 mmol/l Bedside D-Dimer > 450 0-450 ng/mlFEU Bedside Troponin I 0.020 0-0.045 ng/ml Bedside Lactic Acid Venous 2.33 0.90-1.70 mmol/L Test 07/09/16 19:32 Range/Units Diagnostic Radiology CT Head: No acute intracranial findings CXR: Mild elevation right hemidiaphragm. No acute findings EKG EKG:Afib with rvr PVCs QTC:[address]-T wave changes Impression Assessment and Plan Atrial Fib with RVR: Presented with SOB, dizziness, generalized weakness Admit in Tele No known history of afib Currently converted to sinus after IV fluids Initial Troponin X 2: wnl TSH:2.3:wnl Continue IV heparin which was started in ED, given elevated d-dimer and inability to get CTA secondary to renal insufficiency continue BB Consult Cardiology Check ECHO, trend troponin Repeat EKG Hypotension improved with IVF Acute Renal Insufficiency: Likely prerenal Cr:1.8 Baseline Cr:1.1 Continue IV fluids Monitor renal function Hold Valsartan Elevated d-dimer: Recent right hip replacement R/O PE, DVT Check venous Doppler CTA when Cr levels better Continue IV heparin for now Hypokalemia: Will replace and monitor Mag levels: wnl Hold HCTZ secondary to hypotension Transaminitis: Likely secondary to meds Avoid hepatotoxic meds LFTS in AM Mild Leukocytosis: No signs of infection Check lactate, procalcitonin monitor CAD: Stable Continue Asprin, Plavix, BB, statins BPH: Hols Tamsulosin for now Hypertension: Currently hypotensive Hold HCTZ, Valsartan, Tamsulosin continue IV fluids Recent R hip replacement: Consult Ortho PT/OT H/O CVA: No signs of focal deficits Stable Continue home meds HLP: Continue statins DVT Px: On IV Heparin Code status: Full code VTE Prophylaxis VTE Risk Assessment Done? Y/N: Yes Risk Level: Moderate
[2016-07-09] MEDS ORDERED: ATORVASTATIN 40 MG TAB PO SCH (21:00)
[2016-07-09] MEDS: NSS + 20MEQ KCL 1000ML 1,000 ML IV SCH (21:17)
[2016-07-09 23:07] VITALS: BP 135/74; PULSE 71; TEMP 36.5; O2SAT 96
--- NOTE | 2016-07-09 23:31 | PROGRESS NOTE ---
DATE: 07/09/2016 SUBJECTIVE: The patient seen this evening, roughly 11 pm. After talking to the PA in my office ( I was in [place], at a [place] [employer] Meeting, board meeting ) I instructed the PA to send the patient to the hospital because it seemed like he was in atrial fibrillation. He denied any prior problems although he did have some gout in his right toe and had some pain from that and actually slipped and fell, injuring his wound a few days earlier. At this point in time, he states that what he felt today and yesterday were different than prior to falling. At present, he is very comfortable. He feels much better. He has been hydrated. He is back in sinus rhythm. He clearly was in atrial fibrillation. He had a rapid ventricular response and was busy. He now feels better. PAST MEDICAL HISTORY: Remarkable for benign prostatic hyperplasia, coronary artery disease, cerebrovascular disease, degenerative joint disease, hyperlipidemia, hypertension, recent right hip replacement. FAMILY HISTORY: Remarkable for heart disease. SOCIAL HISTORY: Reveals he does not smoke. He only drinks socially. He is retired. ALLERGIES: AMLODIPINE AND NAPROSYN. PREADMISSION MEDICATIONS: Were aspirin, atorvastatin, carvedilol, Plavix, hydrochlorothiazide, potassium chloride, Flomax, Diovan, p.r.n. Imdur and p.r.n. Percocet. PERTINENT EXAMINATION: Today reveals the hip to be located. Wound dressing clean, dry and intact. Neurovascular check is normal. He is in regular rate and rhythm. ASSESSMENT: New onset atrial fibrillation, will be evaluated for deep venous thrombosis/pulmonary embolism. He was on chronic platelet inhibitors. They were never stopped. Continue anticoagulation per primary care hospitalist service. Weightbearing to tolerance, PT, OT. Discharge when medically stable per medicine. Follow up with me in 1 week. JEFFD
[2016-07-10 01:39] LABS: PARTIAL THROMBOPLASTIN RATIO 2.5
[2016-07-10 03:33] VITALS: BP 130/64; PULSE 62; TEMP 36.5; O2SAT 98
[2016-07-10] MEDS: NSS + 20MEQ KCL 1000ML 1,000 ML IV SCH (04:47)
[2016-07-10 04:55] LABS: BASO % 0.4 %; BASO ABS # 0.04 K/uL (0-0.2); COMPLETE YES; EOS % 1.5 %; HEMATOCRIT 31.9 % (42-52); IG% 0.5 %; LYMPH % 37.8 %; LYMPH ABS # 3.86 K/uL (1.2-3.4); MEAN CELL VOLUME 81.2 fL (80-100); MEAN CORPUSCULAR HGB CONC 33.2 g/dl (32-36); MEAN PLATELET VOLUME 9.5 fL (7.4-10.4); MONO % 7.8 %; PLATELET COUNT 385 K/uL (130-400); RED BLOOD COUNT 3.93 M/uL (4.7-6.1)
[2016-07-10 05:13] LABS: BUN/CREATININE RATIO 25.4 (10-20); CALCIUM 7.5 mg/dl (8.5-10.1); CREATININE 1.3 mg/dl (0.60-1.40); POTASSIUM 3.5 mmol/L (3.5-5.1)
[2016-07-10] MEDS: CLOPIDOGREL BISULFATE 75 MG TAB PO SCH (07:51)
[2016-07-10] MEDS: ASPIRIN 81 MG ECTAB PO SCH (07:52)
[2016-07-10 07:55] VITALS: BP 120/64; PULSE 70; TEMP 36.8; O2SAT 96
--- NOTE | 2016-07-10 08:49 | DIAGNOSTIC IMAGING REPORT ---
BILATERAL LOWER EXTREMITY VENOUS DOPPLER CLINICAL HISTORY: New onset atrial fibrillation. COMPARISON STUDY: No previous studies for comparison. TECHNIQUE: Sonography of the deep venous system of the bilateral lower extremities was performed. Compression and augmentation were evaluated. FINDINGS: The bilateral common femoral, superficial femoral and popliteal veins were compressible. Augmentation was normal. Flow was shown within the deep calf vessels. IMPRESSION: No evidence of deep venous thrombus within the bilateral lower extremities. Electronically signed by: Justin Colin M.D. 07/10/2016 8:47 AM Dictated Date/Time: 07/10/2016 8:47 AM
[2016-07-10] MEDS ORDERED: CARVEDILOL CR 20 MG CAPER PO SCH (09:00)
--- NOTE | 2016-07-10 10:43 | Clinical Documentation Query ---
Dr. JACKSON [facility] : CLINICAL DOCUMENTATION QUERY Patient is a 76 year old male admitted for atrial fibrillation with rapid ventricular response. Admission BUN and creatinine were 34 mg/dl and 1.80 mg/dl. This a.m. (07/10) repeat values are 33 mg/dl and 1.30 mg/dl. H&P documentation includes "acute renal insufficiency". Unfortunately, this does not equate with acute renal failure or acute kidney injury. It assigns a code described as "an unspecified disorder of the kidney". This lacks the associated severity of illness and risk of mortality tied to TERESA or acute renal failure. If this was the intent of this diagnostic statement, please clarify as suggested below as this directly impacts DRG assignment. Thank you. In your clinical opinion is this patient being managed for: ( X ) Acute kidney failure, POA, improving ( ) Other explanation of clinical findings (Please Explain) ( ) Unable to determine (Please Define) ( ) Need to Discuss ( ) Not Agree The medical record reflects the following clinical findings, treatment, and risk factors. Clinical Indicators: As above Treatment: IVF, serial chemistries, hold Valsartan Risk Factors: Poor intake, age, recent surgery, medications Please clarify and document your clinical opinion in the progress notes and discharge summary. Terms such as "probable", "suspected", "likely", "questionable", "possible", or "still to be ruled out" are acceptable. IF IN AGREEMENT, YOU MUST DOCUMENT ABOVE DIAGNOSTIC STATEMENT IN DAILY PROGRESS NOTES AND DISCHARGE SUMMARY. This document is not part of the patient's record. Thank You, David Barragan, YVETTE [phone]
--- NOTE | 2016-07-10 10:47 | CARDIOLOGY CONSULTATION ---
DATE OF CONSULTATION: 07/10/2016 CONSULTATION REQUESTED BY: Dr. Pablo. REASON FOR CONSULTATION: New onset atrial fibrillation. HISTORY OF PRESENT ILLNESS: Mr. Kasper is a very pleasant 76-year-old gentleman who normally follows with Cierra Manzanares of our cardiology practice. He presented to [facility] on 07/09/2016 with a complaint of shortness of breath and lightheadedness for approximately a week and a half. The patient recently underwent elective right hip replacement 2 weeks ago. He was recovering well. He did have a mechanical fall due to the hip mobility and an episode of gout, but otherwise has been doing okay. He admits that he has not had much of an appetite since the surgery, has not been eating much and he has not been drinking any water whatsoever. He has also not compliant with his medications, stating he has not taken his potassium supplementation, instead electing to eat more bananas, but he has been taking all of his other medications. On 07/09/2016, the patient when seen in Dr. Kraft's office for routine postoperative followup, at which time he was found to be rather pale, slightly hypotensive and tachycardic with an irregular heartbeat, and he was sent to the Emergency Department. Upon arrival, he was found to be in atrial fibrillation. He was also found to be hypokalemic and prerenal on laboratory studies. He was given potassium supplementation and IV fluids and he quickly converted to normal sinus rhythm. During this event he denies experiencing any palpitations or chest pain. He states he has just felt short of breath and lightheaded for the last several days. He has no previous history of paroxysmal atrial fibrillation. Of note, the patient does carry a history of nonobstructive coronary artery disease and did undergo stress testing prior to the surgery, which was nonischemic. PAST SURGICAL HISTORY: 1. Recent hip repair. 2. Cardiac catheterization complicated by bronchospasm. MEDICAL ILLNESSES: 1. Coronary artery disease with an 80% lesion of the posterolateral branch off the RCA. 2. Hypertension. 3. Dyslipidemia. 4. Questionable CVA, although the patient denies. 5. Medical noncompliance with medications and medical followup. FAMILY HISTORY: Noncontributory. SOCIAL HISTORY: The patient denies any tobacco use. Drinks rare alcohol. Denies any recreational drug use. ALLERGIES: 1. AMLODIPINE. 2. NAPROXEN. MEDICATIONS AN OUTPATIENT: 1. Aspirin 81 mg daily. 2. Plavix 75 mg daily. 3. Hydrochlorothiazide 25 mg daily. 4. Potassium chloride 10 mEq daily, again the patient has not been taking. 5. Valsartan 320 mg daily. 6. Coreg CR 40 mg daily. 8. Atorvastatin 80 mg daily. 9. Imdur 30 mg daily as needed. PHYSICAL EXAMINATION: VITALS: Temperature 36.8, pulse 70, respiratory rate 12, blood pressure 120/64. GENERAL: Awake, alert, oriented x3 in no acute distress. HEENT: Normocephalic, atraumatic. Pupils equal, round, and reactive to light and accommodation. Extraocular muscles intact. Anicteric sclerae. Moist mucous membranes. NECK: No JVD, no bruit. CARDIOVASCULAR: Regular. Positive S4. Normal S1 and S2. No S3. No murmurs or rubs. PULMONARY: Clear to auscultation bilaterally. No rales, rhonchi, or wheezing. ABDOMEN: Bowel sounds x4, soft. No rebound, guarding, or tenderness. No organomegaly. EXTREMITIES: No clubbing, cyanosis or edema. +2 pedal pulses bilaterally. SKIN: Warm and dry. TEST RESULTS: A 12-lead EKG performed upon presentation at 1740 shows atrial fibrillation with rapid ventricular response. Followup EKG of 18:01 shows normal sinus rhythm. Review of telemetry monitoring shows the patient presenting in atrial fibrillation with rapid ventricular response and spontaneously cardioverting to normal sinus rhythm at 1754. LABORATORY STUDIES: Upon presentation, sodium 134, potassium 3.3, BUN 33, creatinine 1.6. IMPRESSION: 1. Paroxysmal atrial fibrillation, unknown duration. 2. Hypokalemia. 3. Volume depletion. 4. History of medical noncompliance. 5. Nonobstructive coronary artery disease. RECOMMENDATIONS: It was my pleasure to see Mr. Kasper in consultation today. The pathophysiology and treatment options for atrial fibrillation were discussed with the patient at great lengths. He was counseled that most likely the inciting event was his volume depletion, as well as hypokalemia. So at this point, his hydrochlorothiazide will be discontinued. He has received appropriate IV fluids, as well as potassium supplementation and that will be continued to be monitored. In terms of long-term anticoagulation, the pros and cons were discussed with the patient. However, he admits he is noncompliant, does not want to follow up for blood tests or appointments, so I do not believe he would be a good anticoagulation candidate. So at this time will continue to monitor him for another 24 hours. Should he not have any recurrences of atrial fibrillation after his electrolytes have been corrected, then will discharge him to home without any long-term anticoagulation, which is the patient's preference. At the same time, I will change his Coreg CR over to Toprol-XL for greater beta blockade.
[2016-07-10] MEDS: HEPARIN 25,000 UNIT/500ML D5W 500 ML IV PRN (11:42)
[2016-07-10 11:54] VITALS: BP 148/74; PULSE 64; TEMP 36.5; O2SAT 98
--- NOTE | 2016-07-10 15:44 | PROGRESS NOTE ---
DATE: 07/10/2016 At this point in time the last 3 shweta of his wound are removed. There is some scant serosanguineous drainage in and about the dressing. He is on heparin. The wound is changed, all Steri-Strips are removed, new Steri-Strips applied and new pressure dressing applied. We will keep that on until he is off the heparin. Has some minor redness around the wound, likely based on contusion secondary to falling last week; however, due to the fact that this is a relatively fresh wound and he is in the hospital, we will place him on azithromycin 500 mg qd. We will start this now. We will keep it on for 5 doses pending followup in the office if he is discharged prior. We will not place him on any other antibiotics due to potential interferece with coumadin. This gentleman is little bit noncompliant, so it is kind of hard to know how to treat his potential DVT prophylaxis. Also with his AFib, whether or not they want to treat him chronically by cardiology recommendations. We will continue with observation on that. Medical and cardiology coverage will have to make the final call on that. I am willing to stick with aspirin and other platelet inhibitor pending cardiology and his other history of disease, what their final decision would be. JO ANN
--- NOTE | 2016-07-10 15:45 | Progress Note ---
Medicine Progress Note Date & Time of Visit: Jul 10, 2016 at 15:24. Subjective Patient seen and examined. Denies chest pain, SOB, palpitations, dizziness, lightheadedness. Anticipating discharge home tomorrow. Objective Last 8 Hrs Date Time Temp Pulse Resp B/P Pulse Ox O2 Delivery O2 Flow Rate FiO2 07/10/16 12:00 Room Air 07/10/16 11:54 36.5 64 16 148/74 98 Room Air 07/10/16 08:00 Room Air 07/10/16 07:55 36.8 70 16 120/64 96 Room Air Physical Exam: General-awake; alert; NAD Eyes-EOMI; no scleral icterus Neck-no stridor; trachea midline Lungs-CTA bilaterally; no wheezes/crackles Heart-RRR; no m/r/g Abdomen-soft; NTND; nBS Extremities-right hip bandage c/d/i; no deformity Neuro-no gross focal deficits Laboratory Results: Last 24 Hours Test 07/09/16 17:25 07/09/16 17:31 07/09/16 17:32 07/09/16 18:29 White Blood Count 11.98 K/uL Red Blood Count 4.55 M/uL Hemoglobin 12.3 g/dL Hematocrit 36.6 % Mean Corpuscular Volume 80.4 fL Mean Corpuscular Hemoglobin 27.0 pg Mean Corpuscular Hemoglobin Concent 33.6 g/dl Platelet Count 591 K/uL Mean Platelet Volume 9.9 fL Neutrophils (%) (Auto) 72.1 % Lymphocytes (%) (Auto) 20.1 % Monocytes (%) (Auto) 6.6 % Eosinophils (%) (Auto) 0.4 % Basophils (%) (Auto) 0.3 % Neutrophils # (Auto) 8.64 K/uL Lymphocytes # (Auto) 2.41 K/uL Monocytes # (Auto) 0.79 K/uL Eosinophils # (Auto) 0.05 K/uL Basophils # (Auto) 0.03 K/uL RDW Standard Deviation 40.7 fL RDW Coefficient of Variation 13.9 % Immature Granulocyte % (Auto) 0.5 % Immature Granulocyte # (Auto) 0.06 K/uL Prothrombin Time 11.4 SECONDS Prothromb Time International Ratio 1.1 Activated Partial Thromboplast Time 25.5 SECONDS Partial Thromboplastin Ratio 1.0 Sodium Level 135 mmol/L Potassium Level 3.3 mmol/L Chloride Level 98 mmol/L Carbon Dioxide Level 26 mmol/L Anion Gap 11.0 mmol/L 17.0 mmol/L Blood Urea Nitrogen 34 mg/dl Creatinine 1.80 mg/dl Est Creatinine Clear Calc Drug Dose 43.0 ml/min Estimated GFR () 42.0 Estimated GFR (Non- 36.3 BUN/Creatinine Ratio 19.0 Random Glucose 178 mg/dl Calcium Level 8.2 mg/dl Phosphorus Level 2.7 mg/dl Magnesium Level 2.2 mg/dl Total Bilirubin 0.8 mg/dl Direct Bilirubin 0.3 mg/dl Aspartate Amino Transf (AST/SGOT) 47 U/L Alanine Aminotransferase (ALT/SGPT) 109 U/L Alkaline Phosphatase 145 U/L Total Creatine Kinase 87 U/L Creatine Kinase MB 2.7 ng/ml Creatine Kinase MB Ratio 3.1 Troponin I 0.028 ng/ml Pro-B-Type Natriuretic Peptide 1632 pg/ml Total Protein 6.7 gm/dl Albumin 2.8 gm/dl Lipase 223 U/L Procalcitonin < 0.05 ng/mL Thyroid Stimulating Hormone (TSH) 2.330 uIu/ml Bedside Hemoglobin 12.6 g/dl Bedside Hematocrit 37 % Bedside Sodium 134 mEq/L Bedside Potassium 3.3 mEq/L Bedside Chloride 92 mEq/L Bedside Total CO2 28 mEq/l Bedside Blood Urea Nitrogen 33 mg/dl Bedside Creatinine 1.6 mg/dl Bedside Glucose (other) 182 mg/dl Bedside Ionized Calcium (Ina) 1.08 mmol/l Bedside D-Dimer > 450 ng/mlFEU Bedside Troponin I 0.020 ng/ml Bedside Lactic Acid Venous 2.33 mmol/L Test 07/09/16 22:00 07/10/16 01:05 07/10/16 04:40 07/10/16 09:53 Lactic Acid Level 1.7 mmol/L Troponin I 0.021 ng/ml 0.020 ng/ml Activated Partial Thromboplast Time 65.6 SECONDS Partial Thromboplastin Ratio 2.5 White Blood Count 10.20 K/uL Red Blood Count 3.93 M/uL Hemoglobin 10.6 g/dL Hematocrit 31.9 % Mean Corpuscular Volume 81.2 fL Mean Corpuscular Hemoglobin 27.0 pg Mean Corpuscular Hemoglobin Concent 33.2 g/dl Platelet Count 385 K/uL Mean Platelet Volume 9.5 fL Neutrophils (%) (Auto) 52.0 % Lymphocytes (%) (Auto) 37.8 % Monocytes (%) (Auto) 7.8 % Eosinophils (%) (Auto) 1.5 % Basophils (%) (Auto) 0.4 % Neutrophils # (Auto) 5.30 K/uL Lymphocytes # (Auto) 3.86 K/uL Monocytes # (Auto) 0.80 K/uL Eosinophils # (Auto) 0.15 K/uL Basophils # (Auto) 0.04 K/uL RDW Standard Deviation 42.1 fL RDW Coefficient of Variation 14.1 % Immature Granulocyte % (Auto) 0.5 % Immature Granulocyte # (Auto) 0.05 K/uL Sodium Level 139 mmol/L Potassium Level 3.5 mmol/L 3.7 mmol/L Chloride Level 102 mmol/L Carbon Dioxide Level 28 mmol/L Anion Gap 9.0 mmol/L Blood Urea Nitrogen 33 mg/dl Creatinine 1.30 mg/dl Est Creatinine Clear Calc Drug Dose 59.9 ml/min Estimated GFR () 62.3 Estimated GFR (Non- 53.8 BUN/Creatinine Ratio 25.4 Random Glucose 109 mg/dl Calcium Level 7.5 mg/dl Total Bilirubin 0.8 mg/dl Direct Bilirubin 0.3 mg/dl Aspartate Amino Transf (AST/SGOT) 38 U/L Alanine Aminotransferase (ALT/SGPT) 92 U/L Alkaline Phosphatase 129 U/L Total Protein 6.0 gm/dl Albumin 2.5 gm/dl Assessment & Plan Paroxysmal Atrial Fib: Presented with SOB, dizziness, generalized weakness No known history of A fib Converted to sinus after IV fluids Troponin normal TSH normal Cardiology consulted Continue IV heparin; patient is not a good candidate for jail anticoagulation; therefore will not start upon discharge (per Cardiology recommendations) Carvedilol changed to Metoprolol per Cardiology recommendations ECHO pending Acute Kidney Failure: Likely prerenal Cr:1.8 on admission Baseline Cr:1.1 Improved with IV fluids Hold Valsartan and HCTZ Elevated d-dimer: Recent right hip replacement Venous Doppler negative Low clinical suspicion for VTE in the setting of new onset A fib, hypotension and TERESA on presentation Hypokalemia: Continue supplementation Hold HCTZ Transaminitis: Possibly related to underlying hypotension and A fib on presentation Hold atorvastatin Downtrending CAD: Stable Continue Aspirin, Plavix Carvedilol changed to Metoprolol Hold atorvastatin given resolving transaminitis BPH: Continue Tamsulosin Hypertension: Hypotensive on presentation Hold HCTZ, Valsartan Resolved with IVF's and heart rate control Recent R hip replacement: Consulted Ortho PT/OT evaluations: patient stable for discharge home Azithromycin x5 days started given mild erythema around wound per Ortho H/O CVA: Stable Continue aspirin, clopidogrel Hold atorvastatin given mild transaminitis DVT Px: On IV Heparin Anticipate discharge home tomorrow. Consultants: Cardiology Orthopedics Procedures: CT Head No acute intracranial findings. LE Venous doppler No evidence of deep venous thrombus within the bilateral lower extremities. Current Inpatient Medications: Current Inpatient Medications Medications (Trade) Dose Ordered Sig/Janki Route Start Time Stop Time Status Last Admin Dose Admin Ioversol 100 ml 100 ml UD PRN IV 07/09/16 17:45 07/13/16 17:44 Heparin Sodium/ Dextrose (Heparin 25,000 Unit/500ml D5W) 500 ml @ 31 mls/hr Q16H8M PRN IV 07/09/16 18:45 08/08/16 18:44 07/10/16 11:42 31 MLS/HR Ondansetron HCl (Zofran Inj) 4 mg Q6H PRN IV 07/09/16 19:15 08/08/16 19:14 Metoprolol Tartrate (Lopressor Iv) 5 mg Q6H PRN IV 07/09/16 19:15 08/08/16 19:14 Aspirin (Ecotrin Tab) 81 mg DAILY PO 07/10/16 09:00 08/09/16 08:59 07/10/16 07:52 81 MG Atorvastatin Calcium (Lipitor Tab) 80 mg HS PO 07/09/16 21:00 08/08/16 20:59 07/09/16 21:18 80 MG Clopidogrel Bisulfate (plAVix TAB) 75 mg DAILY PO 07/10/16 09:00 08/09/16 08:59 07/10/16 07:51 75 MG Carvedilol (Coreg Cr) 40 mg QAM PO 07/10/16 09:00 08/09/16 08:59 07/10/16 07:52 40 MG Oxycodone HCl (Roxicodone Immediate Rel Tab) 5 mg Q6 PRN PO 07/09/16 20:00 07/23/16 19:59 Azithromycin (Zithromax Tab) 500 mg DAILY PO 07/10/16 16:00 07/14/16 15:59
[2016-07-10] MEDS ORDERED: AZITHROMYCIN 250 MG TAB PO SCH (16:00)
[2016-07-10 16:25] VITALS: BP_SYST 152; BP_SYST 174; BP_DIAS 75; BP_DIAS 79; PULSE 69; TEMP 36.4; O2SAT 97
[2016-07-10 19:32] VITALS: BP 147/87; PULSE 70; TEMP 36.6; O2SAT 95
[2016-07-10] MEDS ORDERED: TEMAZEPAM 7.5 MG CAP PO PRN (20:00)
[2016-07-10] MEDS ORDERED: TAMSULOSIN HCL 0.4 MG CAP PO SCH (21:00)
[2016-07-10 23:03] VITALS: BP 146/82; PULSE 68; TEMP 36.6; O2SAT 97
[2016-07-11 03:50] VITALS: BP 147/84; PULSE 59; TEMP 36.8; O2SAT 96
[2016-07-11] MEDS: HEPARIN 25,000 UNIT/500ML D5W 500 ML IV PRN (04:54)
[2016-07-11 05:22] LABS: HEMATOCRIT 31.4 % (42-52); MEAN CELL VOLUME 80.9 fL (80-100); MEAN CORPUSCULAR HEMOGLOBIN 27.1 pg (25-34); MEAN CORPUSCULAR HGB CONC 33.4 g/dl (32-36); MEAN PLATELET VOLUME 9.1 fL (7.4-10.4); PLATELET COUNT 335 K/uL (130-400); RED BLOOD COUNT 3.88 M/uL (4.7-6.1); WHITE BLOOD COUNT 9.12 K/uL (4.8-10.8)
[2016-07-11 05:41] LABS: PARTIAL THROMBOPLASTIN RATIO 3.8
[2016-07-11 06:05] LABS: BUN/CREATININE RATIO 21.8 (10-20); CALCIUM 8.1 mg/dl (8.5-10.1); CREATININE 1.1 mg/dl (0.60-1.40); POTASSIUM 3.9 mmol/L (3.5-5.1)
[2016-07-11 06:07] LABS: ALB/GLOB RATIO 0.7 (0.9-2)
--- NOTE | 2016-07-11 06:54 | PROGRESS NOTE ---
DATE: 07/11/2016 HISTORY OF PRESENT ILLNESS: The patient is seen on the floor. Dressing is intact. He notes no pain in his hip. He denies any chest pain, shortness of breath, fever or chills. PHYSICAL EXAMINATION: Vital signs are stable. He is afebrile. Physical exam reveals hip to be located. Neurovascular check is normal bilaterally. Dressing is removed. There is some scant serosanguineous drainage. This has been changed and a compressive dressing applied. ASSESSMENT AND PLAN:Post tramatic wound seroma from mechanical fall resolving.Dressing changed and He was instructed to leave that on until Saturday if he is discharged today, we will change it in the office on Saturday. I also note that he is having some gouty changes in his right toe again. I will leave the medical management of that up to his primary care support. It sounds like he needs to have long-term allopurinol, acute colchicine and/or acute corticosteroids. Continue the azithromycin 500 mg daily for 4 more days. Again, we will check him on Saturday in the office and at that point in time, we will determine whether or not if he needs anything additional. Anticoagulation decision per medicine. MTDD
[2016-07-11] MEDS ORDERED: PERFLUTREN LIPID MICROSPHERE (DEFINITY) IV ONE (07:24)
[2016-07-11] MEDS: CLOPIDOGREL BISULFATE 75 MG TAB PO SCH (07:39)
[2016-07-11] MEDS: ASPIRIN 81 MG ECTAB PO SCH (07:39)
[2016-07-11 08:40] VITALS: BP 142/75; PULSE 69; TEMP 36.5; O2SAT 96
[2016-07-11 08:41] VITALS: O2SAT 96
[2016-07-11] MEDS ORDERED: POTASSIUM CHLORIDE 10 MEQ TABCR PO SCH (09:00)
[2016-07-11] MEDS ORDERED: METOPROLOL SUCC 50MG EXT REL TAB PO SCH (09:00)
[2016-07-11] MEDS ORDERED: AZITHROMYCIN 250 MG TAB PO SCH (09:00)
[2016-07-11] MEDS ORDERED: CLC6 PO (09:32)
[2016-07-11] MEDS ORDERED: TPRSR50 PO (09:32)
[2016-07-11] MEDS ORDERED: ZTHM250 PO (09:32)
--- NOTE | 2016-07-11 09:40 | Discharge Instructions ---
Discharge Instructions Admission Reason for Admission: New Onset A-Fib Discharge Discharge Diagnosis / Problem: Paroxysmal atrial fibrillation Discharge Goals Goal(s): Improve disease control Activity Recommendations Activity Limitations: resume your previous activity . Instructions / Follow-Up Instructions / Follow-Up Please follow up with Family Medicine Dr. Nino on July 13 at 2:50pm. Please follow up with Cardiology Dr. Britt on July 31 at 10:30am. Please stop taking Carvedilol. This has been replaced by Metoprolol. You have 3 more days of Azithromycin (antibiotic) for your right hip. Please start your prescription 07/12/16 and take until complete. Please stop taking Hydrochlorothiazide (blood pressure) until otherwise instructed to do so by your doctor. You can take colchicine once a day as needed for a gout flare. Current Hospital Diet Patient's current hospital diet: AHA Diet (Heart Healthy) Discharge Diet Recommended Diet: AHA Diet (Heart Healthy) Pending Studies Studies pending at discharge: no Medical Emergencies . Who to Call and When: Medical Emergencies: If at any time you feel your situation is an emergency, please call 911 immediately. . Non-Emergent Contact Non-Emergency issues call your: Primary Care Provider . . "Provider Documentation" section prepared by Judy Brown. VTE Core Measure Inpt VTE Proph given/why not?: Other Anticoagulation
[2016-07-11 09:48] VITALS: BP 142/75; PULSE 69; TEMP 36.5; O2SAT 96
--- NOTE | 2016-07-11 10:55 | ECHOCARDIOGRAM REPORT ---
*NOTICE TO RECEIVING DEMOCRAT AGENCY This information is strictly Confidential and protected under [place] law. [place] law prohibits you from making any further disclosure of this information unless further disclosure is expressly permitted by the written consent of the person to whom it pertains or is authorized by law. A general authorization for the release of medical or other information is not sufficient for this purpose. Hospital accepts no responsibility if the information is made available to any other person, INCLUDING THE PATIENT. Interpretation Summary * Name: ANSELMO DWYER Study Date: 07/11/2016 06:49 AM BP: 130/64 mmHg * Patient Location: C.2T\S\S230\S\1 HR: 62 * : 1940 (M/d/yyyy) Gender: Male Height: 70 in * Age: 76 yrs Ethnicity: CA Weight: 228 lb * Ordering Physician: Josep Pablo * Referring Physician: Param Kraft * Performed By: Robin Chicas RCS * * Reason For Study: A-FIB * BSA: 2.2 m2 * -- Conclusions -- * The left ventricle is normal in size. * Ejection Fraction = 65-70%. * The right ventricular systolic function is normal. * The left atrial size is normal. * Right atrial size is normal. * No significant valvular pathology. Procedure Details * A complete two-dimensional transthoracic echocardiogram was performed (2D, M-mode, Doppler and color flow Doppler). * The study was technically difficult. * A contrast injection of Definity was performed to improve assessment of LV function. * Contrast was injected into an intravenous site in the left arm. * One vial of Definity ultrasound contrast was diluted in normal saline to a total volume of 10 ml. A total of '2' ml of solution was administered during imaging. * Lot # [id number] of Definity utilized for procedure. * Expiration date . * The attending nurse who injected the contrast agent was Osvaldo Vidales RN. Left Ventricle * The left ventricle is normal in size. * There is normal left ventricular wall thickness. * Ejection Fraction = 65-70%. * The left ventricular wall motion is normal. Right Ventricle * The right ventricle is normal size. * The right ventricular systolic function is normal. Atria * The left atrial size is normal. * Right atrial size is normal. * The interatrial septum is intact with no evidence for an atrial septal defect. Mitral Valve * The mitral valve is normal in structure and function. Tricuspid Valve * The tricuspid valve is normal in structure and function. Aortic Valve * The aortic valve is normal in structure and function. Pulmonic Valve * The pulmonic valve is not well seen, but is grossly normal. * There is no significant pulmonary regurgitation. Great Vessels * The aortic root and proximal ascending aorta are normal sized. Pericardium/Pleural * There is no pericardial effusion. MMode 2D Measurements and Calculations IVSd 10 cm IVSs 1.1 cm LVIDd 2.8 cm LVIDs 1.7 cm LVPWd 1.0 cm LVPWs 1.2 cm IVS/LVPW 0.95 FS 38.5 % EDV(Teich) 28.7 ml ESV(Teich) 8.4 ml EF(Teich) 70.7 % EDV(cubed) 21.2 ml ESV(cubed) 4.9 ml EF(cubed) 76.7 % % IVS thick 8.6 % % LVPW thick 15.4 % LV mass(C)d 75.8 grams LV mass(C)dI 34.3 grams/m\S\2 LV mass(C)s 49.6 grams LV mass(C)sI 22.5 grams/m\S\2 CO(Teich) 1.4 l/min CI(Teich) 0.62 l/min/m\S\2 SV(Teich) 20.3 ml SI(Teich) 9.2 ml/m\S\2 CO(cubed) 1.1 l/min CI(cubed) 0.50 l/min/m\S\2 SV(cubed) 16.2 ml SI(cubed) 7.4 ml/m\S\2 Ao root diam 4.0 cm Ao root area 12.3 cm\S\2 ACS 2.0 cm LA dimension 3.9 cm LA/Ao 0.98 LVAd ap4 23.9 cm\S\2 LVLd ap4 7.1 cm EDV(MOD-sp4) 68.0 ml LVAs ap4 11.3 cm\S\2 LVLs ap4 5.8 cm ESV(MOD-sp4) 18.5 ml EF(MOD-sp4) 72.8 % LVAd ap2 32.1 cm\S\2 LVLd ap2 8.2 cm EDV(MOD-sp2) 104.0 ml LVAs ap2 16.7 cm\S\2 LVLs ap2 6.9 cm ESV(MOD-sp2) 33.4 ml EF(MOD-sp2) 67.9 % CO(MOD-sp4) 3.4 l/min CI(MOD-sp4) 1.5 l/min/m\S\2 SV(MOD-sp4) 49.5 ml SI(MOD-sp4) 22.4 ml/m\S\2 CO(MOD-sp2) 4.8 l/min CI(MOD-sp2) 2.2 l/min/m\S\2 SV(MOD-sp2) 70.6 ml SI(MOD-sp2) 32.0 ml/m\S\2 Doppler Measurements and Calculations MV E max broderick 66.6 cm/sec MV A max broderick 52.4 cm/sec MV E/A 1.3 MV P1/2t max broderick 90.2 cm/sec MV P1/2t 66.0 msec MVA(P1/2t) 3.3 cm\S\2 MV dec slope 400.5 cm/sec\S\2 MV dec time 0.23 sec Ao V2 max 91.2 cm/sec Ao max PG 3.3 mmHg Ao max PG (full) 1.9 mmHg LV V1 max PG 1.4 mmHg LV V1 max 49.6 cm/sec PA V2 max 84.4 cm/sec PA max PG 2.8 mmHg TR max broderick 308.1 cm/sec
--- NOTE | 2016-07-11 19:19 | Discharge Summary ---
Discharge Summary Admission Date: Jul 09, 2016 at 19:10 Discharge Date: Jul 11, 2016 Discharge Disposition: Home with services Principal Diagnosis: Paroxysmal atrial fibrillation Secondary Diagnoses/Problems: Acute kidney failure Procedures: CT Head No acute intracranial findings. LE Venous doppler No evidence of deep venous thrombus within the bilateral lower extremities. TTE * The left ventricle is normal in size. * Ejection Fraction = 65-70%. * The right ventricular systolic function is normal. * The left atrial size is normal. * Right atrial size is normal. * No significant valvular pathology. Consultations: Cardiology Orthopedics Medication Reconciliation New Medications: Colchicine (Colcrys) 0.6 Mg Tab 1 TAB PO DAILY PRN for gout flare for 7 Days, #7 TABS Azithromycin (Azithromycin) 250 Mg Tab 500 MG PO QAM for 3 Days, #6 TAB Metoprolol Succinate (Metoprolol Succinate ER) 50 Mg Tabcr 50 MG PO QAM for 30 Days, #30 TAB Continued Medications: Aspirin (Aspirin Ec) 81 Mg Tab 81 MG PO DAILY Atorvastatin (Lipitor) 80 Mg Tab 80 MG PO HS, TAB Clopidogrel Bisulfate (Plavix) 75 Mg Tab 75 MG PO DAILY, TAB Isosorbide Mononitrate (Imdur Ext Rel) 60 Mg Tab 30 MG PO UD PRN for Chest Pain, TAB Oxycodone/Acetaminophen 5MG/325MG (Percocet 5MG/325MG) Tab 1 TABLET PO Q4H PRN for Pain, #36 TAB 1-2 tabs every 4-6 hours as needed for pain Potassium Chloride (Micro-K Ext Rel) 10 Meq Capcr 1 TAB PO DAILY, CAP Tamsulosin Hcl (Flomax) 0.4 Mg Cap 0.4 MG PO HS, CAP Valsartan (Diovan) 320 Mg Tab 320 MG PO QAM, TAB Discontinued Medications: Carvedilol (Coreg Cr) 40 Mg Caper 40 MG PO QAM, CAP Hydrochlorothiazide (Hctz) 25 Mg Tab 25 MG PO QAM, TAB Admission Information HPI (per Admitting provider): Patient is a 76 Yr old male with PMH of CVA, CAD, HTN, BPH, HTN, HLP, DJD who was recently discharged after undergoing an elective right hip replacement presents with history of worsening SOB, light headedness since 2 days duration. Also reports decreased oral intake since 2 weeks duration. He states he slipped and fell about 10 days ago after being discharged from previous admission but denies any head trauma, LOC at the time. Patient was refereed by his orthopedic surgeon for evaluation in ED for hypotension. Patient had right hip wound with pressure dressing and 3 shweta left and was told his wound was healing well. In ED he was found to have afib with rvr, hypotensive and was dizzy which improved with IV fluids and he converted into sinus rhythm. Currently denies any chest pain, SOB, palpitations, dizziness, blurred vision. Also denies any history of nausea, vomiting, fever, chills, abd pain, change in bowel/bladder habits. Physical Exam (per Admitting): General Appearance: WD/WN, no apparent distress Head: normocephalic, atraumatic Eyes: normal inspection, PERRL, EOMI, sclerae normal, + pertinent finding ( left lower lid droop) ENT: normal ENT inspection, hearing grossly normal, pharynx normal Neck: supple, no JVD, trachea midline Respiratory/Chest: chest non-tender, lungs clear, normal breath sounds, no respiratory distress, no accessory muscle use Cardiovascular: regular rate, rhythm, no edema, no murmur, normal peripheral pulses Abdomen/GI: normal bowel sounds, non tender, soft, no organomegaly Back: normal inspection, normal range of motion Extremities/Musculoskelatal: normal inspection, no calf tenderness, no pedal edema 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 Patient converted to sinus rhythm after administration of IVF's. Cardiology was consulted. Troponin was normal. TSH was normal. Patient was started on IV heparin. However, patient was not felt to be a good candidate for correction anticoagulation given medication and follow up noncompliance and therefore was not discharged on anticoagulation. TTE unremarkable. Carvedilol changed to Metoprolol per Cardiology recommendations. Labs were notable for acute kidney failure on admission with a creatinine of 1.8. This improved with IVF's. HCTZ and Valsartan were held during hospitalization and Valsartan was resumed upon discharge. Patient was instructed to hold HCTZ until his follow up appointment. D-dimer was elevated. Venous doppler was negative. Unable to do CT chest given renal failure on admission. Low clinical suspicion for VTE and d-dimer could be elevated given new onset A fib and renal failure. Patient had transaminitis on admission. Possibly related to underlying issues on admission. This resolved. Atorvastatin had been held during hospitalization and patient was instructed to resume on discharge. Orthopedics evaluated patient given recent right hip replacement. Patient was started on 5 day course of azithromycin for post traumatic wound seroma per Ortho recommendations. Patient was continued on his home medications with the exceptions noted above. Patient deemed stable for discharge home with home health. PE on discharge: General- awake; alert; NAD Eyes- EOMI; no scleral icterus Neck- no stridor; trachea midline Lungs- CTA bilaterally; no wheezes/crackles Heart- RRR; no m/r/g Abdomen- soft; NTND; nBS Back- no gross focal deficits Extremities- no deformity; no c/c/e Neuro- no gross focal deficits Skin- surgical bandage to right hip c/d/i; no appreciable rash . Total time spent on discharge = This includes examination of the patient, discharge planning, medication reconciliation, and communication with other providers. Discharge Instructions Discharge Instructions Admission Reason for Admission: New Onset A-Fib Discharge Discharge Diagnosis / Problem: Paroxysmal atrial fibrillation Discharge Goals Goal(s): Improve disease control Activity Recommendations Activity Limitations: resume your previous activity . Instructions / Follow-Up Instructions / Follow-Up Please follow up with Family Medicine Dr. Nino on July 13 at 2:50pm. Please follow up with Cardiology Dr. Britt on July 31 at 10:30am. Please stop taking Carvedilol. This has been replaced by Metoprolol. You have 3 more days of Azithromycin (antibiotic) for your right hip. Please start your prescription 07/12/16 and take until complete. Please stop taking Hydrochlorothiazide (blood pressure) until otherwise instructed to do so by your doctor. You can take colchicine once a day as needed for a gout flare. Current Hospital Diet Patient's current hospital diet: AHA Diet (Heart Healthy) Discharge Diet Recommended Diet: AHA Diet (Heart Healthy) Pending Studies Studies pending at discharge: no Medical Emergencies . Who to Call and When: Medical Emergencies: If at any time you feel your situation is an emergency, please call 911 immediately. . Non-Emergent Contact Non-Emergency issues call your: Primary Care Provider . . "Provider Documentation" section prepared by Judy Brown. VTE Core Measure Inpt VTE Proph given/why not?: Other Anticoagulation Additional Copies To Daniel Abad M.D.
--- NOTE | 2016-07-13 12:49 | EDITING REQUIRED CODING QUERY ---
CODING QUERY Dear Dr. Duval, To promote full compliance with coding requirements relating to patient care, provider participation is requested in all cases of certified medical records coder uncertainty. Please assist us with the question(s) below: The fact that a question is asked does not imply that any particular answer is desired or expected. We appreciate your clarification on this issue. Coding Question(s): Complication - Wound Seroma ( ) Complication of Right Hip Replacement ( ) Present on admission ( ) Not Present on admission ( ) Unable to determine ( X ) Complication - Post Traumatic Injury/Fall ( ) Present on admission ( ) Not Present on admission ( ) Unable to determine ( ) Not a Complication ( ) Other: Please explain Medical documentation: Orthopedics evaluated patient given recent right hip replacement. Patient was started on 5 day course of azithromycin for post traumatic wound seroma per Ortho recommendations. Physician's Response(s): Thank you for your time. Shea Barr [facility] Principal Diagnosis: "_that condition established after study, to be chiefly responsible for occasioning the admission of the patient to the hospital for care." Co-Existing Principal Diagnosis: "_when two or more diagnoses equally meet the criteria for principal diagnosis as determined by the circumstances of admission, diagnostic work up, and/or therapy provided, and the Alphabetic Index, Tabular List, or another coding guideline does not provide sequencing direction, any one of the diagnoses may be sequenced first." "When the physician has documented what appears to be a current diagnosis in the body of the record, but has not included the diagnosis in the final diagnostic statement, the physician should be asked whether the diagnosis should be added." (Source Coding [facility] 2 QTR90. p3-4)
== END 2016-07-11 12:03 | disposition home health service (06) | DRG 309 ==
LOC: ENRESERVTM → ENRESERVDT → C.EDB 17:10 → C.2T 19:10
PROVIDERS: ADMIT Internal Medicine; ATTEND Internal Medicine
DX: I48.0 Paroxysmal atrial fibrillation (principal); N17.9 Acute kidney failure, unspecified; I25.10 Atherosclerotic heart disease of native coronary artery without angina pectoris; E78.5 Hyperlipidemia, unspecified; M10.9 Gout, unspecified; S70.01XA Contusion of right hip, initial encounter; W19.XXXA Unspecified fall, initial encounter; E87.6 Hypokalemia; I42.0 Dilated cardiomyopathy; E86.1 Hypovolemia; E86.0 Dehydration; I95.9 Hypotension, unspecified; R74.0 Nonspecific elevation of levels of transaminase and lactic acid dehydrogenase [LDH]; N40.0 Benign prostatic hyperplasia without lower urinary tract symptoms; D72.829 Elevated white blood cell count, unspecified; R42 Dizziness and giddiness; I11.9 Hypertensive heart disease without heart failure; R79.1 Abnormal coagulation profile; Z91.14 Patient's other noncompliance with medication regimen; Z96.641 Presence of right artificial hip joint; Z91.19 Patient's noncompliance with other medical treatment and regimen; Z79.82 Long term (current) use of aspirin; Z86.73 Personal history of transient ischemic attack (TIA), and cerebral infarction without residual deficits; Z79.899 Other long term (current) drug therapy; Z79.891 Long term (current) use of opiate analgesic; Z79.02 Long term (current) use of antithrombotics/antiplatelets

== ENCOUNTER → 2016-08-06 | Outpatient (CLI) | payer MEDICARE, OTHER ==
[~2016-08-06] MED LIST changes: -ASPI325T45 PO; +ASPI81TA28 PO; +CLC6 PO; -CRGSR/40 PO; -HYDR25TA4 PO; -ISOS30TA3 PO; +ISOS60TA2 PO; +TPRSR50 PO; +ZTHM250 PO
== END | disposition home or self-care (01) ==
LOC: C.RDSM 14:47
PROVIDERS: ATTEND Physical Medicine & Rehabilitation Sports Medicine
DX: Z96.641 Presence of right artificial hip joint (principal)